=== PATIENT | male | born 1985 | race Caucasian/White ===

== ENCOUNTER → 2020-06-29 09:32 | Outpatient (BNVA) | payer OTHER, SELFPAY | PROVIDERS: Referring Provider Nurse Practitioner Family; Visit Provider Physician Assistant | DX: E66.9 Obesity, unspecified (principal); Z68.33 Body mass index [BMI] 33.0-33.9, adult; K90.49 Malabsorption due to intolerance, not elsewhere classified; Z98.84 Bariatric surgery status | CPT/HCPCS: 99214 ==

== ENCOUNTER 2020-09-01 12:31 | Outpatient (REF) | payer OTHER, SELFPAY ==
[2020-09-01 13:22] LABS: Basophils Percent Auto 0.9 % (0-2); Eosinophils Absolute Auto 0.2 X10*3/uL (0.0-0.4); Eosinophils Percent Auto 5.9 % (0-4); Hematocrit 45.5 % (42-52); Hemoglobin 15.3 g/dl (14.0-18.0); Lymphocytes Absolute Auto 1.9 X10*3/uL (1.2-4.9); Lymphocytes Percent Auto 57.6 % (20-40); MANUAL DIFF FLAG SCAN; Mean Corpuscular HGB Conc 33.6 g/dl (31.0-36.0); Mean Corpuscular Hemoglobin 32.2 pg (27.0-33.0); Mean Corpuscular Volume 95.8 fL (80-98); Mean Platelet Volume 9.6 fL (9.4-12.4); Monocytes Absolute Auto 0.4 X10*3/uL (0.1-1.2); Monocytes Percent Auto 11.2 % (2-11); Neutrophils Absolute Auto 0.8 X10*3/uL (2.0-8.3); Neutrophils Percent Auto 24.4 % (45-73); Platelet Count 329 X10*3/uL (160-400); Red Blood Count 4.75 X10*6/uL (4.60-5.80); Red Cell Distribution Width 12.8 % (11.0-16.0); SCAN SMEAR FLAG 1; White Blood Count 3.2 X10*3/uL (4.8-10.8)
[2020-09-01 13:49] LABS: Alanine Aminotransferase 35 U/L (0-40); Albumin Level 4.6 g/dL (3.5-5.0); Alkaline Phosphatase 57 U/L (39-117); Anion Gap 12 (12-20); Aspartate Amino Transferase 64 U/L (5-37); Bilirubin Total 1.5 mg/dL (0.0-1.0); Blood Urea Nitrogen 16 mg/dL (9-16); C Reactive Protein 0.24 mg/dL (< or = 0.50); Carbon Dioxide 31 mmol/L (22-29); Chloride 101 mmol/L (96-108); Cholesterol 170 mg/dL; Estimated Glomerular Filt Rate > 60; Glucose Random 90 mg/dL (60-115); HDL Cholesterol 58 mg/dL; Iron 157 mcg/dL (45-160); LDL Cholesterol Calculated 98 mg/dl; Percent Iron Saturation 53 % (15-50); Potassium 4.6 mmol/l (3.3-5.1); Sodium 139 mmol/L (135-145); Total Iron Binding Capacity 297 mcg/dL (228-428); Total Protein 6.9 g/dL (6.5-8.0); Triglycerides 71 mg/dL; Unsaturated Iron Binding 140 ug/dL
[2020-09-01 14:10] LABS: Ferritin 257 ng/mL (20-250); TSH reflex Free T4 0.54 mIU/mL (0.32-4.0); Vitamin D 25-OH Total 19.4 ng/mL (>30)
[2020-09-01 14:17] LABS: Folate 8.3 ng/mL (> or = 4.0); Vitamin B12 378 pg/mL (200-900)
[2020-09-01 15:00] LABS: Estimated Average Glucose 105 mg/dL; Hemoglobin A1c % 5.3 %
[2020-09-01 15:18] LABS: SLIDE REVIEW VERIFIED
[2020-09-02 16:03] LABS: Calcium (PTHI) 9.5 mg/dL (8.6-10.3); PTHI 27 pg/mL (14-64)
[2020-09-02 17:12] LABS: Insulin Level Total 3.2 uIU/mL
[2020-09-04 13:32] LABS: Zinc 103 mcg/dL (60-130)
[2020-09-05 12:36] LABS: Vitamin B1 9 nmol/L (8-30)
[2020-09-06 09:42] LABS: Vitamin A 53 mcg/dL (38-98)
== END 2020-09-01 12:32 | disposition home or self-care (01) ==
LOC: HO.LAB 12:31
PROVIDERS: PCP Internal Medicine; Visit Provider Physician Assistant
DX: E66.9 Obesity, unspecified (principal)
CPT/HCPCS: 36415; 80053; 80061; 82306; 82607; 82728; 82746; 83036; 83525; 83540; 83970; 84425; 84443; 84590; 84630; 85025; 86140

== ENCOUNTER → 2020-09-06 08:17 | Outpatient (BNVA) | payer OTHER, SELFPAY | PROVIDERS: PCP Internal Medicine; Visit Provider Physician Assistant | DX: Z76.89 Persons encountering health services in other specified circumstances (principal) ==

== ENCOUNTER → 2020-09-22 08:56 | Outpatient (BNVA) | payer OTHER, SELFPAY | PROVIDERS: PCP Internal Medicine; Visit Provider Physician Assistant | DX: Z76.89 Persons encountering health services in other specified circumstances (principal) ==

== ENCOUNTER → 2020-10-07 08:03 | Outpatient (BNVA) | payer OTHER, SELFPAY | PROVIDERS: PCP Internal Medicine; Visit Provider Physician Assistant ==

== ENCOUNTER → 2020-11-09 07:59 | Outpatient (BNVA) | payer OTHER, SELFPAY | PROVIDERS: PCP Internal Medicine; Visit Provider Dietitian, Registered ==

== ENCOUNTER 2021-09-21 09:59 | Outpatient (REF) | payer OTHER, SELFPAY ==
[2021-09-21 11:57] LABS: COVID-19 Test Positive (Negative)
== END 2021-09-21 10:00 | disposition home or self-care (01) ==
LOC: HO.LAB 09:59
PROVIDERS: Visit Provider Internal Medicine
DX: Z20.822 Contact with and (suspected) exposure to COVID-19 (principal)
CPT/HCPCS: 87635; C9803

== ENCOUNTER 2023-05-01 14:24 | Emergency (ER) | payer OTHER, SELFPAY ==
[2023-05-01 14:37] VITALS: BP 147/90; PULSE 92; RESP 18; TEMP 36.8; O2SAT 96; BMI 41.2
--- NOTE | 2023-05-01 14:37 | ED_ITS ---
HPI - General Adult General Chief complaint: Syncope Stated complaint: High heart rate Related Data Home Medications ?Medication ?Instructions ?Recorded ?Confirmed diclofenac sodium 1 % topical gel 4 g topical QID 11/27/23 01/31/24 (Arthritis Pain (diclofenac)) Previous Rx's ?Medication ?Instructions ?Recorded atenolol 50 mg tablet 50 mg PO DAILY #90 tabs 02/22/24 Allergies Allergy/AdvReac Type Severity Reaction Status Date / Time No Known Allergies Allergy Verified 12/06/23 15:17 [facility] Past Medical History Medical History (Updated 03/05/24 @ 10:11 by KING Salinas) Palpitations Internal hemorrhoids Torn ACL Back pain Depression GERD (gastroesophageal reflux disease) Hypertension Seasonal allergies Malabsorption due to intolerance, not elsewhere classified Obesity (BMI 30.0-34.9) Surgical History [place] teeth extracted S/P laparoscopic sleeve gastrectomy Family History Family History Father Myocardial infarction Mother Brain tumor Diabetes CVD (cardiovascular disease) COPD (chronic obstructive pulmonary disease) Hypertension Sister No problems noted. Sister No problems noted. Daughter No problems noted. Maternal Grandmother Leukemia Social History Social History Housing: Other Alcohol intake: current Alcohol intake frequency: a few times a week Patient Tobacco Use Status: Former Tobacco user Tobacco use type: Cigarette e-Cigarette/Vaping Use: Never Used Second Hand Smoke Exposure: Yes service: No Current occupational status: employed Cognitive needs: No Hearing needs: No Vision needs: Yes Physical Exam ED Vital Signs: Vital Signs - 24 hr 05/01/23 14:37 Temperature 98.3 F Pulse Rate 92 Respiratory Rate 18 Blood Pressure 147/90 H Pulse Oximetry 96 Oxygen Delivery Method Room Air BMI result Body Mass Index 41.2 Course Course Course Narrative: This is an RME: Additional HPI, ROS, PE not included below will be deferred to primary provider. Patient is a 37 year old male who presents for sweating, feeling like his heart is racing and dizziness while working today. Felling better but slightly out of it Plan: cardiac work up Discharge Plan Discharge Clinical Impression: Eloped from emergency department Patient Disposition: Elopement Prescriptions: No Action atenolol 50 mg tablet 50 mg PO DAILY Qty: 90 0RF diclofenac sodium [Arthritis Pain (diclofenac)] 1 % gel 4 g topical QID Rx Instructions: apply to single knee, ankle, foot; for foot includes sole/toes/top of foot Interventions: ED Discharge Assessment Last Done: 05/01/23 20:15 Discharge Date/Time: 05/01/23 20:17 Print Language: [place]
--- NOTE | 2023-05-01 14:42 | ECG_ITS ---
Test Reason : DIZINESS Blood Pressure : / mmHG Vent. Rate : 089 BPM Atrial Rate : 089 BPM P-R Int : 136 ms QRS Dur : 102 ms QT Int : 358 ms P-R-T Axes : 007 -01 012 degrees QTc Int : 435 ms Normal sinus rhythm with sinus arrhythmia Minimal voltage criteria for LVH, may be normal variant ( R in aVL ) Borderline ECG When compared with ECG of 31-JUL-2019 10:37, No significant change was found Referred By: Generic ED Physician Electronically Signed By:BEKAH PRETTY
== END 2023-05-01 20:17 | disposition left against medical advice (07) ==
PROVIDERS: Emergency Provider Emergency Medicine; PCP Internal Medicine
DX: R00.2 Palpitations (principal); R42 Dizziness and giddiness; I10 Essential (primary) hypertension; E78.5 Hyperlipidemia, unspecified; E66.9 Obesity, unspecified; Z68.41 Body mass index [BMI] 40.0-44.9, adult; Z98.84 Bariatric surgery status
CPT/HCPCS: 93005; 99283

== ENCOUNTER 2023-05-04 07:09 | Outpatient (AMB) | payer OTHER, SELFPAY ==
--- NOTE | 2023-05-04 07:10 | A.OFFPC_ITS ---
Intake Visit Reasons: dizzy episode Allergies No Known Allergies Allergy (Verified 05/04/23 07:19) Tobacco use date assessed: 05/04/23 Dental Screening Dental Screen Date: 05/04/23 Did you have a dental visit in the last 12 months?: No Did you have a dental problem in the last 6 months where you did not have access to dental care?: No Was dental information given to patient?: Patient has dentist HPI HPI Comments History of Present Illness Details 37 year old male past history significant for hypertension, s/p laparoscopic sleeve gastrectomy. Patient has not been seen in years. Patient presents today for a telehealth appointment for ER follow-up. Patient reports on Sunday went to ER feeling dizzy at work like tunnel vision and heart racing, went to the nurse at his job and his b/p was 140/90's HR-100's. Patient states was advised to go to ER did get EKG which showed SR, sinus arrhythmia. Patient reports that time he was instructed to go back to wait in the waiting area, however there was a lot of sick people in the waiting room and he did not want a risk getting sick as he takes care of his dad so he ended up leaving. Patient previously on HCTZ and lisinopril in the past for hypertension. Patient reports stopped taking the medications due to COVID and missing appointments. Patient states that he bought a blood pressure cuff Yesterday, his readings are Home were B/p: 138/95 HR:71, 134/88, HR 41. Patient reported HR of 41 yesterday. Patient denies any chest pain, palpitations, shortness of breath, lightheadedness and syncope. Urgent 3 day Holter monitor ordered to further evaluate for arrhythmia. Patient reports a light headache at times. [facility] Medical History (Updated 05/04/23 @ 07:27 by HARVEY Rizzo) Back pain Depression GERD (gastroesophageal reflux disease) Hypertension Internal hemorrhoids Malabsorption due to intolerance, not elsewhere classified Obesity (BMI 30.0-34.9) Seasonal allergies Torn ACL Surgical History S/P laparoscopic sleeve gastrectomy [place] teeth extracted Family History (Updated 05/04/23 @ 07:12 by Lolita M Maitin, [employer]) Father Myocardial infarction Mother Brain tumor Diabetes Hypertension COPD (chronic obstructive pulmonary disease) CVD (cardiovascular disease) Sister No problems noted. Sister No problems noted. Daughter No problems noted. Social History Housing: Other Patient Tobacco Use Status: Former Tobacco user Tobacco use type: Cigarette e-Cigarette/Vaping Use: Never Used Second Hand Smoke Exposure: Yes Current occupational status: employed Cognitive needs: No Hearing needs: No Vision needs: Yes Questionnaire PHQ-9 Over the last 2 weeks, how often have you been bothered by any of the following problems? 1. Little interest or pleasure in doing things: not at all 2. Feeling down, depressed, or hopeless: not at all 3. Trouble falling or staying asleep, or sleeping too much: not at all 4. Feeling tired or having little energy: not at all 5. Poor appetite or overeating: not at all 6. Feeling bad about yourself - or that you are a failure or have let yourself or your family down: not at all 7. Trouble concentrating on things, such as reading the newspaper or watching television: not at all 8. Moving or speaking so slowly that other people could have noticed. Or the opposite - being so fidgety or restless that you have been moving around a lot more than usual: not at all 9. Thoughts that you would be better off or of hurting yourself in some way: not at all Total score: 0 Depression Screening Interpretation: Negative Source: Developed by Drs. Brendan Quintana, Amrita Ortiz, Michael Greene and colleagues, with an educational forrest from [employer]. Thrive Questionnaire Date Thrive assessed: 05/04/23 I am a: Patient What is your living situation today?: I have a steady place to live Within the past 12 months, did the food you bought not last and you didn't have the money to get more?: Never true Within the past 12 months, did you worry whether your food would run out before you got money to buy more?: Never true Do you have trouble paying for medicines?: No Do you have trouble getting transportation to medical appointments?: No Do you have trouble paying your heating and electricity bill?: No Do you have trouble taking care of your child, family member or friend?: No Do you have trouble with day-to-day activities such as bathing, preparing meals, shopping, managing finances, etc.?: No Are you currently unemployed and looking for a job?: No Are you interested in more education?: No Currently or been in a relationship where the following occur: no concerns reported AUDIT C Alcohol Use Questionnaire (AUDIT-C) 1. How often do you have a drink containing alcohol?: Monthly or less 2. How many drinks containing alcohol do you have on a typical day when you are drinking?: 1 or 2 3. How often do you have six or more drinks on one occasion?: Never Total Score: 1 NOE-7 AMB Questionnaire NOE-7 Date NOE - 7 assessed: 05/04/23 Feeling nervous, anxious, or on edge: 0 = Not at all Not being able to stop or control worryin = Not at all Worrying too much about different things: 0 = Not at all Trouble relaxin = Not at all Being so restless that it is hard to sit still: 0 = Not at all Becoming easily annoyed or irritable: 0 = Not at all Feeling afraid as if something awful might happen: 0 = Not at all Total NOE-7 score (0-4 normal; 5-9 mild; 10-14 moderate; 15-21 severe): 0 Source: Developed by Drs. Brendan Quintana, Amrita Ortiz, Michael Greene and colleagues, with an educational forrest from [employer]. Review of Systems Const Denies chills, Denies fatigue, Denies fever(s) and Denies poor appetite ENT Reports Normal hearing present Card Denies chest pain, Denies syncope, Denies rapid heart rate and Denies dyspnea Resp Denies cough and Denies dyspnea Neuro Reports Normal hearing present, Denies confusion and Denies syncope Psych Denies confusion Endo Denies fatigue Physical exam (Primary Care) Vital Signs: unable to complete as this is a telehealth appointment. Tobacco/Smoking Status: Tobacco use Status Tobacco use date assessed 05/04/23 05/04/23 07:13 Patient Tobacco Use Status Former Tobacco user 05/04/23 07:13 Tobacco use type Cigarette 05/04/23 07:13 e-Cigarette/Vaping Use Never Used 05/04/23 07:13 PHQ-9: PHQ-9 Score PHQ-9: Total score 0 05/04/23 07:13 Depression Screening Interpretation: Negative Thrive Assessment: Date of Thrive Assessment Date Thrive assessed 05/04/23 05/04/23 07:13 Currently or been in a relationship where the following occur: no concerns reported Const General: No confusion Orientation/consciousness: No confusion Neuro General: No confusion Cranial nerves: Yes Normal hearing present Telehealth Telehealth Location of provider rendering services: practice address Location of patient: other (Work) Patient Identification confirmed using: Name, : Yes Telehealth method: video (Android) Patient verbally consented to treatment: Yes Patient verbally consented to billing insurance company: Yes Patient informed of any privacy concerns related to visit: Yes Minutes spent on Phone/Video with Pt.: 11 Assessment and Plan Assessment & Plan (1) Hypertension: Code(s): I10 - Essential (primary) hypertension Plan: Start patient on lisinopril 5 mg daily. Follow low-salt diet and exercise. Follow-up in 2 weeks with navigation nurse for blood pressure recheck. (2) Palpitations: Code(s): R00.2 - Palpitations Plan: Urgent Holter monitor ordered to evaluate for arrhythmia. Patient advised to seek emergency medical attention if he develops any chest pain, palpitations, shortness of breath, dizziness or syncope. Patient agreeable with plan of care. Plan Follow-up in 1 month in office. Please get fasting blood work prior to appointment. Orders: Orders Comprehensive [place]. Panel Fast Today Z13.1 - Encounter for screening for diabetes mellitus Lipid Panel Today Z13.220 - Encounter for screening for lipoid disorders TSH reflex Free T4 Today Z13.29 - Encounter for screening for other suspected endocrine disorder ECG 3 day holter monitor Today R00.2 - Palpitations Complete Blood Count Auto Diff Today Z13.0 - Encounter for screening for diseases of the blood and blood-forming organs and certain disorders involving the immune mechanism Medications: New lisinopril 5 mg PO DAILY 30 tabs 3RF I10 - Essential (primary) hypertension Coding Level of Care Code Tele New Pt Level 3 (60966) Diagnoses Hypertension I10 Palpitations R00.2
== END 2023-05-04 07:32 | disposition home or self-care (01) ==
LOC: HO.HMGH 07:09
PROVIDERS: PCP Internal Medicine; Visit Provider Nurse Practitioner Family
DX: I10 Essential (primary) hypertension (principal); R00.2 Palpitations
CPT/HCPCS: 99203

== ENCOUNTER 2023-05-05 07:07 | Outpatient (REF) | payer OTHER, SELFPAY ==
[2023-05-05 07:18] LABS: MANUAL DIFF FLAG NO
[2023-05-05 07:51] LABS: Basophils Percent Auto 0.9 % (0-2); Eosinophils Absolute Auto 0.1 X10*3/uL (0.0-0.4); Eosinophils Percent Auto 4.4 % (0-4); Hematocrit 47.8 % (42.0-52.0); Hemoglobin 16.5 g/dl (14.0-18.0); Lymphocytes Absolute Auto 1.4 X10*3/uL (1.2-4.9); Lymphocytes Percent Auto 44.1 % (20-40); Mean Corpuscular HGB Conc 34.5 g/dl (31.0-36.0); Mean Corpuscular Hemoglobin 31.4 pg (27.0-33.0); Mean Platelet Volume 9.2 fL (9.4-12.4); Monocytes Absolute Auto 0.5 X10*3/uL (0.1-1.2); Monocytes Percent Auto 14.1 % (2-11); Neutrophils Absolute Auto 1.2 x10*3/uL (2.0-8.3); Neutrophils Percent Auto 36.5 % (45-73); Platelet Count 355 X10*3/uL (160-400); Red Blood Count 5.25 X10*6/uL (4.60-5.80); White Blood Count 3.2 X10*3/uL (4.8-10.8)
[2023-05-05 08:21] LABS: Alanine Aminotransferase 20 U/L (0-40); Albumin Level 4.7 g/dL (3.5-5.0); Alkaline Phosphatase 56 U/L (39-117); Anion Gap 14 (12-20); Aspartate Amino Transferase 18 U/L (5-37); Bilirubin Total 1.3 mg/dL (0.0-1.0); Blood Urea Nitrogen 13 mg/dL (9-16); Calcium 10.2 mg/dL (8.4-10.2); Carbon Dioxide 25 mmol/L (22-29); Chloride 104 mmol/L (96-108); Cholesterol 220 mg/dL; Estimated Glomerular Filt Rate > 60; Glucose Fasting 92 mg/dL (60-99); HDL Cholesterol 55 mg/dL; LDL Cholesterol Calculated 149 mg/dl; Potassium 4.9 mmol/L (3.3-5.1); Sodium 138 mmol/L (135-145); Total Protein 7.8 g/dL (6.5-8.0); Triglycerides 81 mg/dL
[2023-05-05 08:38] LABS: TSH reflex Free T4 1.08 uIU/mL (0.32-4.0)
== END 2023-05-05 07:08 | disposition home or self-care (01) ==
LOC: HO.LAB 07:07
PROVIDERS: PCP Internal Medicine; Visit Provider Nurse Practitioner Family
DX: Z13.0 Encounter for screening for diseases of the blood and blood-forming organs and certain disorders involving the immune mechanism (principal); Z13.1 Encounter for screening for diabetes mellitus; Z13.220 Encounter for screening for lipoid disorders
CPT/HCPCS: 36415; 80053; 80061; 84443; 85025

== ENCOUNTER 2023-06-04 11:32 | Outpatient (AMB) | payer OTHER, SELFPAY ==
[2023-06-04 11:33] VITALS: BP 148/68; PULSE 75; O2SAT 98; BMI 40.4
--- NOTE | 2023-06-04 11:33 | A.OFFPC_ITS ---
Vital Signs 06/04/23 11:33 Height 5 ft 5 in Weight 243 lb BMI 40.4 BP 148/68 H Blood Pressure Location Lt brachial Position Sitting Pulse 75 Pulse Source Pulse Oximeter Pulse Oximetry (%) 98 Oxygen Delivery Method Room Air Intake Visit Reasons: 1 month f/u Watch Crystal Grinder: Not Required per policy Accompanied by: Self / Same As Patient Allergies No Known Allergies Allergy (Verified 06/04/23 11:33) Tobacco use date assessed: 05/04/23 Dental Screening Dental Screen Date: 06/04/23 Did you have a dental visit in the last 12 months?: No Did you have a dental problem in the last 6 months where you did not have access to dental care?: No Was dental information given to patient?: Patient has dentist HPI HPI Comments History of Present Illness Details 37 year old male past history significan t for hypertension, s/p laparoscopic sleeve gastrectomy. Last seen via telehealth 1 month ago presents today for follow-up. Patient was previously restarted back on his lisinopril 5 mg daily due to hypertension blood pressure in office today elevated at 148/68. Patient reports b/p is running 123/97, 140/98, 113/85. Patient reports holter monitor was denies by his insurance as it was not ordered by sales account specialist. Patient requesting referral to Cardiology to further evaluate palpitations and near syncopal episode. Patient reports ongoing left heel pain posterior ankle swelling at times after working on his feet all day and then when he gets up in the morning he heel pain is so bad he limps Patient states takes Tylenol and ibuprofen at home good effect. Patient denies any acute injury. Patient requesting refill on his lisinopril for 90 day supply, RX sent [facility] Medical History Internal hemorrhoids Torn ACL Back pain Depression GERD (gastroesophageal reflux disease) Hypertension Seasonal allergies Malabsorption due to intolerance, not elsewhere classified Obesity (BMI 30.0-34.9) Surgical History [place] teeth extracted S/P laparoscopic sleeve gastrectomy Family History Father Myocardial infarction Mother Brain tumor Diabetes Hypertension COPD (chronic obstructive pulmonary disease) CVD (cardiovascular disease) Sister No problems noted. Sister No problems noted. Daughter No problems noted. Social History Housing: Other Patient Tobacco Use Status: Former Tobacco user Tobacco use type: Cigarette e-Cigarette/Vaping Use: Never Used Second Hand Smoke Exposure: Yes Current occupational status: employed Cognitive needs: No Hearing needs: No Vision needs: Yes Questionnaire PHQ-9 Over the last 2 weeks, how often have you been bothered by any of the following problems? 1. Little interest or pleasure in doing things: not at all 2. Feeling down, depressed, or hopeless: not at all 3. Trouble falling or staying asleep, or sleeping too much: not at all 4. Feeling tired or having little energy: not at all 5. Poor appetite or overeating: not at all 6. Feeling bad about yourself - or that you are a failure or have let yourself or your family down: not at all 7. Trouble concentrating on things, such as reading the newspaper or watching television: not at all 8. Moving or speaking so slowly that other people could have noticed. Or the opposite - being so fidgety or restless that you have been moving around a lot more than usual: not at all 9. Thoughts that you would be better off or of hurting yourself in some way: not at all Total score: 0 Depression Screening Interpretation: Negative Source: Developed by Drs. Brendan Quintana, Michael Beach and colleagues, with an educational forrest from [employer]. Thrive Questionnaire Date Thrive assessed: 05/04/23 AUDIT C Alcohol Use Questionnaire (AUDIT-C) 1. How often do you have a drink containing alcohol?: Monthly or less 2. How many drinks containing alcohol do you have on a typical day when you are drinking?: 1 or 2 3. How often do you have six or more drinks on one occasion?: Never Total Score: 1 NOE-7 AMB Questionnaire NOE-7 Date NOE - 7 assessed: 05/04/23 Source: Developed by Drs. Brendan Quintana, Michael Beach and colleagues, with an educational forrest from [employer]. Review of Systems Const Denies chills, Denies fatigue, Denies fever(s) and Denies poor appetite Eyes Denies no additional complaints ENT Reports Normal hearing present Card Denies chest pain, Denies syncope, Denies rapid heart rate and Denies dyspnea Resp Denies cough and Denies dyspnea GI Denies change in stool character, Denies constipation, Denies diarrhea, Denies nausea and Denies vomiting Denies dysuria, Denies urinary frequency and Denies urinary urgency Musc Details: Right heel pain Neuro Reports Normal hearing present, Denies confusion and Denies syncope Psych Denies confusion Endo Denies fatigue Physical exam (Primary Care) Vital Signs: Last Vital Signs Pulse 75 06/04/23 11:33 BP 148/68 H 06/04/23 11:33 Pulse Ox 98 06/04/23 11:33 Oxygen Delivery Method Room Air 06/04/23 11:33 BMI result Body Mass Index 40.4 Tobacco/Smoking Status: Tobacco use Status Tobacco use date assessed 05/04/23 06/04/23 11:38 Patient Tobacco Use Status Former Tobacco user 06/04/23 11:38 Tobacco use type Cigarette 06/04/23 11:38 e-Cigarette/Vaping Use Never Used 06/04/23 11:38 PHQ-9: PHQ-9 Score PHQ-9: Total score 0 06/04/23 11:48 Depression Screening Interpretation: Negative Thrive Assessment: Date of Thrive Assessment Date Thrive assessed 05/04/23 06/04/23 11:38 Const General: No confusion Orientation/consciousness: No confusion HENMT Head: Yes normocephalic and Yes atraumatic Eyes Conjunctivae: conjunctivae normal Chest Chest palpation & inspection: normal inspection of the chest Resp Effort & Inspection: normal respiratory effort Auscultation: clear to auscultation bilaterally, no crackles, no rhonchi and no wheezes Cardio Rate: regular rate Rhythm: regular rhythm Heart sounds: S1 normal heart sound present and S2 normal heart sound present GI Inspection: Yes normal to inspection Neuro General: No confusion Cranial nerves: Yes Normal hearing present Extrem General: No edema Assessment and Plan Assessment & Plan (1) Palpitations: Code(s): R00.2 - Palpitations Plan: Patient requesting to see sales account specialist given holter monitor was denied. Referral entered (2) Hyperlipidemia: Code(s): E78.5 - Hyperlipidemia, unspecified Plan: Avoid fried foods, chicken skin, eggs, butter,margarine, pastries and?? red meat. LDL goal < 130 (3) Hypertension: Code(s): I10 - Essential (primary) hypertension Plan: Continue on lisinopril 5mg daily Follow low-salt diet. Continue to check blood pressures at home after sitting and 3-5 minutes and keep a log, patient advised to notify office if he has elevated blood pressures to make necessary adjustments in his blood pressure medication. (4) Obesity (BMI 30.0-34.9): Code(s): E66.9 - Obesity, unspecified Plan: Diet and excercise to reduce BMI (5) Pain of left heel: Code(s): M79.672 - Pain in left foot Plan: left foot and ankle ankle ordered to rule out acute injury. Can continue to take OTC tylenol or ibuprofen as needed for pain and ensure to wear supportive sneakers. (6) Left ankle pain: Code(s): M25.572 - Pain in left ankle and joints of left foot Orders: Orders XR ankle LT 2V Today M25.572 - Pain in left ankle and joints of left foot, M79.672 - Pain in left foot XR foot LT 2V Today M25.572 - Pain in left ankle and joints of left foot, M79.672 - Pain in left foot Referrals Cardiology Referral R00.2 - Palpitations Medications: Refilled lisinopril 5 mg PO DAILY 90 tabs 3RF I10 - Essential (primary) hypertension Coding Level of Care Code Est Pt Level 4 (74117) Diagnoses Palpitations R00.2 Hyperlipidemia E78.5 Hypertension I10 Obesity (BMI 30.0-34.9) E66.9 Pain of left heel M79.672 Left ankle pain M25.572
== END 2023-06-04 12:05 | disposition home or self-care (01) ==
PROVIDERS: PCP Internal Medicine; Visit Provider Nurse Practitioner Family
DX: R00.2 Palpitations (principal); I10 Essential (primary) hypertension; M79.672 Pain in left foot; M25.572 Pain in left ankle and joints of left foot
CPT/HCPCS: 99214

== ENCOUNTER 2023-06-04 12:24 | Outpatient (REF) | payer OTHER, SELFPAY ==
--- NOTE | ~2023-06-04 | XR_ITS ---
EXAMINATION: XR LEFT ANKLE, LEFT FOOT CLINICAL INFORMATION: Pain in left ankle and joints of foot COMPARISON: None TECHNIQUE: 2 views of the left ankle. 3 views of the left foot. FINDINGS: Left ankle: Diffuse soft tissue swelling at the ankle. Small dorsal calcaneal spur. Ankle mortise is preserved. Left foot: Moderate degenerative changes first metatarsophalangeal joint with joint space narrowing and hypertrophic change. Metatarsus adductus, hallux valgus XR/XR foot LT 2V IMPRESSION: 1. Diffuse soft tissue swelling at the ankle. 2. Small dorsal calcaneal spur. 3. Moderate degenerative changes first metatarsophalangeal joint. 4. No displaced fracture of the left foot and ankle. Recommend follow-up imaging in 10-14 days if fracture is suspected. Additional imaging with CT scan or MRI should be considered for better visualization as these modalities are much more sensitive for detection of fracture or other underlying pathology.
--- NOTE | ~2023-06-04 | XR_ITS ---
EXAMINATION: XR LEFT ANKLE, LEFT FOOT CLINICAL INFORMATION: Pain in left ankle and joints of foot COMPARISON: None TECHNIQUE: 2 views of the left ankle. 3 views of the left foot. FINDINGS: Left ankle: Diffuse soft tissue swelling at the ankle. Small dorsal calcaneal spur. Ankle mortise is preserved. Left foot: Moderate degenerative changes first metatarsophalangeal joint with joint space narrowing and hypertrophic change. Metatarsus adductus, hallux valgus XR/XR ankle LT 2V IMPRESSION: 1. Diffuse soft tissue swelling at the ankle. 2. Small dorsal calcaneal spur. 3. Moderate degenerative changes first metatarsophalangeal joint. 4. No displaced fracture of the left foot and ankle. Recommend follow-up imaging in 10-14 days if fracture is suspected. Additional imaging with CT scan or MRI should be considered for better visualization as these modalities are much more sensitive for detection of fracture or other underlying pathology.
== END 2023-06-04 12:25 | disposition home or self-care (01) ==
LOC: HO.XRAY 12:24
PROVIDERS: PCP Internal Medicine; Visit Provider Nurse Practitioner Family
DX: M25.572 Pain in left ankle and joints of left foot (principal); M79.672 Pain in left foot
CPT/HCPCS: 73600; 73620

== ENCOUNTER → 2023-06-08 11:17 | Outpatient (BNV) | payer OTHER, SELFPAY | PROVIDERS: PCP Internal Medicine; Visit Provider Internal Medicine Medical Oncology | DX: D72.819 Decreased white blood cell count, unspecified (principal) | CPT/HCPCS: 99204; 99213 ==

== ENCOUNTER 2023-08-25 08:28 | Outpatient (REF) | payer OTHER, SELFPAY ==
[2023-08-25 08:46] LABS: MANUAL DIFF FLAG NO
[2023-08-25 09:38] LABS: Eosinophils Absolute Auto 0.1 X10*3/uL (0.0-0.4); Eosinophils Percent Auto 3.8 % (0-4); Hematocrit 46.5 % (42.0-52.0); Hemoglobin 15.8 g/dl (14.0-18.0); Lymphocytes Absolute Auto 1.1 X10*3/uL (1.2-4.9); Lymphocytes Percent Auto 35.1 % (20-40); Mean Corpuscular Hemoglobin 31.3 pg (27.0-33.0); Mean Corpuscular Volume 92.1 fL (80.0-98.0); Monocytes Absolute Auto 0.4 X10*3/uL (0.1-1.2); Monocytes Percent Auto 12.1 % (2-11); Neutrophils Absolute Auto 1.5 x10*3/uL (2.0-8.3); Platelet Count 364 X10*3/uL (160-400); Red Blood Count 5.05 X10*6/uL (4.60-5.80); Red Cell Distribution Width 12.5 % (11.0-16.0); White Blood Count 3.1 X10*3/uL (4.8-10.8)
[2023-08-25 09:55] LABS: Alanine Aminotransferase 19 U/L (0-40); Albumin Level 4.6 g/dL (3.5-5.0); Alkaline Phosphatase 58 U/L (39-117); Anion Gap 12 (12-20); Aspartate Amino Transferase 18 U/L (5-37); Bilirubin Total 1.4 mg/dL (0.0-1.0); Blood Urea Nitrogen 19 mg/dL (9-16); Calcium 9.8 mg/dL (8.4-10.2); Carbon Dioxide 28 mmol/L (22-29); Chloride 104 mmol/L (96-108); Cholesterol 220 mg/dL (<200); Estimated Glomerular Filt Rate > 60; Glucose Fasting 88 mg/dL (60-99); Glucose Random 87 mg/dL (60-115); HDL Cholesterol 59 mg/dL (>40); LDL Cholesterol Calculated 139 mg/dL (<100); Potassium 4.4 mmol/L (3.3-5.1); Sodium 140 mmol/L (135-145); Total Protein 7.7 g/dL (6.5-8.0); Triglycerides 110 mg/dL (<150)
== END 2023-08-25 08:29 | disposition home or self-care (01) ==
LOC: HO.LAB 08:28
PROVIDERS: PCP Internal Medicine; Visit Provider Nurse Practitioner Family
DX: D72.819 Decreased white blood cell count, unspecified (principal); E78.5 Hyperlipidemia, unspecified; I10 Essential (primary) hypertension
CPT/HCPCS: 36415; 80053; 80061; 85025

== ENCOUNTER 2023-09-18 10:45 | Outpatient (AMB) | payer OTHER, SELFPAY ==
--- NOTE | 2023-09-18 10:54 | MHC.OFFVIS ---
Intake Vital Signs 09/18/23 10:58 Height 5 ft 5 in Weight 253 lb 8.505 oz BMI 42.2 BP 132/90 H Blood Pressure Location Lt brachial Position Sitting Pulse 82 Intake Visit Reasons: NPV/Palpitations/Po/Confirmed Intake Note: NPV It Program Engagement Director Required: No Accompanied by: Self / Same As Patient Allergies No Known Allergies Allergy (Verified 09/18/23 10:59) Medication List - Last Reconciled 09/18/23 by Bertrand Argueta MD lisinopril 5 mg PO DAILY HPI HPI Comments History of Present Illness Details This is a cardiology consultation regarding palpitations. Patient is morbidly obese. He states that for the last few months, he has been noticing palpitations. More so when he is actively doing something. He feels that heart is pounding. On occasion, he can also feel some tightness in the chest. Not clear if he is describing same problem. When going up stairs, he can also feel short of breath. No known cardiac issues like coronary disease or cardiomyopathy. [facility] Medical History Internal hemorrhoids Torn ACL Back pain Depression GERD (gastroesophageal reflux disease) Hypertension Seasonal allergies Malabsorption due to intolerance, not elsewhere classified Obesity (BMI 30.0-34.9) Surgical History [place] teeth extracted S/P laparoscopic sleeve gastrectomy Family History Father Myocardial infarction Mother Brain tumor Diabetes CVD (cardiovascular disease) COPD (chronic obstructive pulmonary disease) Hypertension Sister No problems noted. Sister No problems noted. Daughter No problems noted. Maternal Grandmother Leukemia Social History (Updated 09/18/23 @ 11:01 by Siomara Salinas) Housing: Other Alcohol intake: current Alcohol intake frequency: a few times a week Patient Tobacco Use Status: Former Tobacco user Tobacco use type: Cigarette e-Cigarette/Vaping Use: Never Used Second Hand Smoke Exposure: Yes service: No Current occupational status: employed Cognitive needs: No Hearing needs: No Vision needs: Yes Review of Systems Const Denies fatigue and Denies weakness Eyes Denies loss of vision ENT Denies dizziness and Denies hearing loss Card Denies chest pain, Denies chest pain with activity, Denies syncope, Denies rapid heart rate, Denies pedal edema, Denies edema, Denies leg edema, Reports lightheadedness, Denies palpitations, Reports dyspnea on exertion and Denies orthopnea Resp Denies cough, Reports dyspnea on exertion and Denies wheezing GI Denies hematochezia and Denies change in stool character Denies hematuria, Denies dysuria and Denies urinary frequency Musc Denies abnormal gait, Denies muscle cramps, Denies muscle weakness, Denies numbness, Denies radiating pain into limb and Denies tingling Skin/Breast Denies nail changes and Denies rash Neuro Denies Abnormal speech present, Denies abnormal gait, Denies dizziness, Denies syncope, Denies loss of vision, Denies memory loss, Denies numbness, Denies tingling and Denies weakness Psych Denies depression and Denies memory loss Endo Denies fatigue and Denies palpitations Aller/Immun Denies wheezing Physical Exam Vital Signs: Last Vital Signs Pulse 82 09/18/23 10:58 BP 132/90 H 09/18/23 10:58 BMI result Body Mass Index 42.2 Const General: comfortable and no acute distress Orientation/consciousness: patient oriented x3 HEENT Other: Unremarkable Head: Yes normal to inspection Neck Neck: Yes normal visual inspection Chest Chest palpation & inspection: normal inspection of the chest Resp Auscultation: clear to auscultation bilaterally Cardio Palpation: normal PMI Heart sounds: S1 normal heart sound present, S2 normal heart sound present, no gallops, no murmurs and no rubs GI Palpation (GI): Soft to palpation Back/Spine/Pelvis Other: unremarkable Skin General skin exam: no rashes or lesions noted Neuro General: patient oriented x3 Speech: No Abnormal speech present Extrem General: Yes normal to inspection Psych Mental Status: mental status grossly normal Assessment & Plan Assessment & Plan (1) Palpitations: Code(s): R00.2 - Palpitations (2) Chest tightness: Code(s): R07.89 - Other chest pain (3) Shortness of breath: Code(s): R06.02 - Shortness of breath Plan EKG with sinus rhythm at 89/Min; voltage criteria for LVH; normal KS and corrected QT. Constellation of symptoms including palpitations, chest tightness and shortness of breath with activity. He will need comprehensive workup and hence may proceed with an echocardiogram, stress test as well as Holter. Once these are completed and reviewed, we can arrange follow-up. In the interim, avoid any form of strenuous exertion. Discussed. Orders: Orders CA echo stress exercise Today R00.2 - Palpitations, R07.2 - Precordial pain ECG 14 day holter monitor Today R00.2 - Palpitations CA echo transthoracic complete Today R00.2 - Palpitations Coding Level of Care Code New Pt Level 4 (15542) Diagnoses Palpitations R00.2 Chest tightness R07.89 Shortness of breath R06.02
[2023-09-18 10:58] VITALS: BP 132/90; PULSE 82; BMI 42.2
== END 2023-09-18 11:17 | disposition home or self-care (01) ==
PROVIDERS: PCP Internal Medicine; Visit Provider Internal Medicine
DX: R00.2 Palpitations (principal); R07.89 Other chest pain; R06.02 Shortness of breath
CPT/HCPCS: 99204

== ENCOUNTER → 2023-09-18 10:45 | Outpatient (BNVA) | payer OTHER, SELFPAY | PROVIDERS: PCP Internal Medicine; Visit Provider Internal Medicine | DX: R00.2 Palpitations (principal); R07.89 Other chest pain; R06.02 Shortness of breath | CPT/HCPCS: 99202 ==

== ENCOUNTER 2023-09-20 10:58 | Outpatient (AMB) | payer OTHER, SELFPAY ==
[2023-09-20 11:16] VITALS: BP 140/92; PULSE 82; O2SAT 98; BMI 41.6
--- NOTE | 2023-09-20 11:16 | MHC.PC.OV ---
Vital Signs 09/20/23 11:16 Height 5 ft 5 in Weight 250 lb 0.2 oz BMI 41.6 BP 140/92 H Blood Pressure Location Lt brachial Position Sitting Pulse 82 Pulse Source Pulse Oximeter Pulse Oximetry (%) 98 Oxygen Delivery Method Room Air Intake Visit Reasons: follow up Hand Shoe Cutter Required: No Allergies No Known Allergies Allergy (Verified 09/20/23 11:16) Medication List - Last Reconciled 09/20/23 by Tello Jackson MD lisinopril 5 mg PO DAILY Tobacco use date assessed: 09/20/23 Dental Screening Dental Screen Date: 09/20/23 Did you have a dental visit in the last 12 months?: No Did you have a dental problem in the last 6 months where you did not have access to dental care?: No HPI follow up HPI Details 37-year-old obese morbid male with hypertension hypercholesterolemia palpitations coming in for follow-up last seen May 2023 patient was referred to Cardiology EKG with sinus rhythm stress test requested EKG requested and echocardiogram.. Blood work noted to have leukopenia and was referred to Hematology Oncology patient has history of laparoscopic sleeve gastrectomy. Workup presently being done if less than 2 will do bone marrow. Patient has also complained about heel pain on the left x-ray doneDiffuse soft tissue swelling at the ankle. 2. Small dorsal calcaneal spur. 3. Moderate degenerative changes first metatarsophalangeal joint. 4. No displaced fracture of the left foot and ankle. Recommend follow-up imaging in 10-14 days if fracture is suspected. Additional imaging with CT scan or MRI should be considered for better visualization as these modalities are much more sensitive for detection of fracture or other underlying pathology. BP at home is 142.116 [facility] Medical History (Updated 09/20/23 @ 12:14 by Tello Jackson MD) Palpitations Internal hemorrhoids Torn ACL Back pain Depression GERD (gastroesophageal reflux disease) Hypertension Seasonal allergies Malabsorption due to intolerance, not elsewhere classified Obesity (BMI 30.0-34.9) Surgical History (Updated 09/20/23 @ 12:19 by Tello Jackson MD) [place] teeth extracted S/P laparoscopic sleeve gastrectomy Family History Father Myocardial infarction Mother Brain tumor Diabetes CVD (cardiovascular disease) COPD (chronic obstructive pulmonary disease) Hypertension Sister No problems noted. Sister No problems noted. Daughter No problems noted. Maternal Grandmother Leukemia Social History (Updated 09/18/23 @ 11:01 by Siomara Salinas) Housing: Other Alcohol intake: current Alcohol intake frequency: a few times a week Patient Tobacco Use Status: Former Tobacco user Tobacco use type: Cigarette e-Cigarette/Vaping Use: Never Used Second Hand Smoke Exposure: Yes service: No Current occupational status: employed Cognitive needs: No Hearing needs: No Vision needs: Yes Questionnaire PHQ-9 Over the last 2 weeks, how often have you been bothered by any of the following problems? 1. Little interest or pleasure in doing things: not at all 2. Feeling down, depressed, or hopeless: not at all 3. Trouble falling or staying asleep, or sleeping too much: not at all 4. Feeling tired or having little energy: not at all 5. Poor appetite or overeating: not at all 6. Feeling bad about yourself - or that you are a failure or have let yourself or your family down: not at all 7. Trouble concentrating on things, such as reading the newspaper or watching television: not at all 8. Moving or speaking so slowly that other people could have noticed. Or the opposite - being so fidgety or restless that you have been moving around a lot more than usual: not at all 9. Thoughts that you would be better off or of hurting yourself in some way: not at all Total score: 0 Depression Screening Interpretation: Negative Depression Screening Done: Yes Source: Developed by Drs. Brendan Quintana, Amrita Ortiz, Michael Greene and colleagues, with an educational forrest from [employer]. Thrive Questionnaire Date Thrive assessed: 05/04/23 AUDIT C Alcohol Use Questionnaire (AUDIT-C) 1. How often do you have a drink containing alcohol?: Monthly or less 2. How many drinks containing alcohol do you have on a typical day when you are drinking?: 1 or 2 3. How often do you have six or more drinks on one occasion?: Never Total Score: 1 NOE-7 AMB Questionnaire NOE-7 Date NOE - 7 assessed: 09/20/23 Feeling nervous, anxious, or on edge: 0 = Not at all Not being able to stop or control worryin = Not at all Worrying too much about different things: 0 = Not at all Trouble relaxin = Not at all Being so restless that it is hard to sit still: 0 = Not at all Becoming easily annoyed or irritable: 0 = Not at all Feeling afraid as if something awful might happen: 0 = Not at all Total NOE-7 score (0-4 normal; 5-9 mild; 10-14 moderate; 15-21 severe): 0 Source: Developed by Drs. Brendan Quintana, Amrita Ortiz, Michael Greene and colleagues, with an educational forrest from [employer]. Physical exam (Primary Care) Vital Signs: Last Vital Signs Pulse 82 09/20/23 11:16 BP 140/92 H 09/20/23 11:16 Pulse Ox 98 09/20/23 11:16 Oxygen Delivery Method Room Air 09/20/23 11:16 BMI result Body Mass Index 41.6 Tobacco/Smoking Status: Tobacco use Status Tobacco use date assessed 09/20/23 09/20/23 11:17 Patient Tobacco Use Status Former Tobacco user 09/20/23 11:17 Tobacco use type Cigarette 09/20/23 11:17 e-Cigarette/Vaping Use Never Used 09/20/23 11:17 PHQ-9: PHQ-9 Score PHQ-9: Total score 0 09/20/23 11:37 Depression Screening Interpretation: Negative Thrive Assessment: Date of Thrive Assessment Date Thrive assessed 05/04/23 09/20/23 11:17 Const General: alert; No acute distress Eyes Conjunctivae: conjunctivae normal Resp Auscultation: clear to auscultation bilaterally Cardio Rate: regular rate Rhythm: regular rhythm GI Inspection: Yes normal to inspection Extrem General: Yes normal to inspection and No edema Assessment and Plan Assessment & Plan (1) Arthritis of left ankle: Code(s): M19.072 - Primary osteoarthritis, left ankle and foot Plan: Keep active lose the weight- will be seeing Podiatry Corey Edwards (2) Obesity (BMI 30.0-34.9): Code(s): E66.9 - Obesity, unspecified Plan: Diet and exercise (3) S/P laparoscopic sleeve gastrectomy: Comment: DR. Shaw 2018 Code(s): Z98.84 - Bariatric surgery status Plan: Follow-up with bariatric surgeon (4) Hypertension: Code(s): I10 - Essential (primary) hypertension Plan: Continue with blood pressure medication. Decrease salt intake and exercise on lisinopril 5 mg once a day (5) Hyperlipidemia: Code(s): E78.5 - Hyperlipidemia, unspecified Plan: Avoid fried foods, chicken skin, eggs, butter margarine, pastries and meat. Be it pork or beef they have a lot of cholesterol LDL goal of less than 130 and triglyceride of less than 150 (6) Palpitations: Code(s): R00.2 - Palpitations Plan: Review of the notes has seen Cardiology and echocardiogram stress test requested Medications: Changed From lisinopril 5 mg PO DAILY 90 tabs 3RF I10 - Essential (primary) hypertension To lisinopril 10 mg PO DAILY 30 tabs 3RF 30 days I10 - Essential (primary) hypertension Coding Level of Care Code Est Pt Level 4 (33815) Diagnoses Arthritis of left ankle M19.072 Obesity (BMI 30.0-34.9) E66.9 S/P laparoscopic sleeve gastrectomy Z98.84 Hypertension I10 Hyperlipidemia E78.5 Palpitations R00.2
== END 2023-09-20 12:31 | disposition home or self-care (01) ==
PROVIDERS: PCP Internal Medicine; Visit Provider Internal Medicine
DX: M19.072 Primary osteoarthritis, left ankle and foot (principal); E66.9 Obesity, unspecified; Z68.41 Body mass index [BMI] 40.0-44.9, adult; Z98.84 Bariatric surgery status; I10 Essential (primary) hypertension; E78.5 Hyperlipidemia, unspecified; R00.2 Palpitations
CPT/HCPCS: 99214

== ENCOUNTER → 2023-10-02 14:50 | Outpatient (REF) | payer OTHER, SELFPAY ==
--- NOTE | 2023-10-02 14:55 | CA_ITS ---
Transthoracic Echocardiogram Patient (Last, First, Middle): Chandan Astudillo, Gender: Male Date of : 1985 Age: 37 Procedure Date: 10/02/2023 Procedure Type: Transthoracic Echocardiogram Location: OP Height: 162.56 cm Weight: 113.4 kg BSA: 2.15 m2 Heart Rate: bpm BP: 120 / 80 mmHg [employer] [place]: RAÚL Referring MD: Bertrand Argueta MD Symptoms: R00.2 - Palpitations Study Quality: Adequate with contrast ECG Rhythm: Sinus Conclusions: - The left ventricular systolic function is mildly decreased. The calculated ejection fraction is 50% by biplane method. - No obvious valvular pathology seen on this study. - Small plaque is seen in the sino tubular ridge. Findings Left Ventricle Normal left ventricular cavity size. There is mildly increased left ventricular wall thickness. The left ventricular systolic function is mildly decreased. The calculated ejection fraction is 50% by biplane method. There is no evidence of regional wall motion abnormalities. There is mild global hypokinesis. Diastolic function is normal for age. Right Ventricle Normal right ventricular cavity size and systolic function. Atria Both atria are normal in size. Aortic Valve There is a normal trileaflet aortic valve. There is mild calcification of the aortic valve. There is no aortic valve stenosis. There is trace (trivial) aortic valve regurgitation. Mitral Valve The mitral valve appears normal. There is no mitral valve regurgitation. There is no mitral valve stenosis. Pulmonic Valve The pulmonic valve is likely normal. Tricuspid Valve There is trace tricuspid valve regurgitation. There is no evidence of pulmonary hypertension. Great Vessels The asc aorta is normal in size. Small plaque is seen in the sino tubular ridge. Venous The inferior vena cava is normal in size and collapses greater than 50% with inspiration. Pericardium/Pleural There is no evidence of pericardial effusion. Prior Study Comparison Changes noted compared to prior study dated: 08/05/2019. Improved LVEF. Recommendations, Care & Conclusions No obvious valvular pathology seen on this study. Measurements 2D Linear Measurements IVSd: 1.21 0.6-0.9/0.6-1.0 cm LVIDd: 4.66 3.9-5.3/4.2-5.9 cm LVIDd Index: 2.17 2.4-3.2/2.2-3.1 cm/m2 LVIDs: 3.62 2.0-3.6 cm LVPWd: 1.19 0.7-1.1 cm LA Diam: 3.60 2.7-3.8/3.0-4.0 cm LAIDs Index: 1.67 1.5-2.3 cm/m2 LV Mass: 260.73 67-162/88-224 g LV Mass Index: 121.27 43-95/49-115 g/m2 LVOT Diam: 2.40 3.0+(-)1.3 cm 2D Systolic Function EF 4C: 47.60 >55% EF 2C: 51.70 >55% EF BiP: 50.40 >55% Mitral Valve MV Pk E: 0.45 MV PK A: 0.49 MV Decel Time: 288.00 E/A: 0.90 E'Lateral: 8.38 E'Medial: 6.42 E/E' Med: 7.00 E/E' Lat: 5.40 PHT: 84.00 MVA PHT: 2.62 Decel [place]: 1.56 Aortic Valve AoV Pk Che[place]: 1.49 AoV Mn Che[place]: 1.06 AoV VTI: 0.28 AoV Pk Grad: 9.00 Aov Mn Grad: 5.00 SISSY Cont.VTI: 2.43 LVOT LVOT Pk [place]: 0.74 LVOT Mn [place]: 0.52 LVOT VTI: 0.15 LVOT Pk Grad: 2.00 LVOT Mn Grad: 1.00 LVOT Diam: 2.40 LVOT Area: 4.52 Diastolic Function MV Pk E: 0.45 MV Pk A: 0.49 E/A: 0.90 E'Medial: 6.42 E/E' Med: 7.00 E' Laterial: 8.38 E/E' Lat: 5.40 Right Ventricle TAPSE (mm): 23.40 TVS' Che[place]: 14.00 Tricuspid Valve RA Press: 3.00 Great Vessels Aorta Sinus of Valsalva: 3.61 2.0-3.[address] [place]: 2.66 1.7-3.4 cm Ao Asc: 3.70 2.1-3.4 cm Updated in Other Vendor System with Status of Final Bertrand Argueta MD electronically signed on 10/04/2023 9:00:13 AM with status of Final
== END ==
LOC: HO.CARD 14:50
PROVIDERS: PCP Internal Medicine; Visit Provider Internal Medicine
DX: R00.2 Palpitations (principal)
CPT/HCPCS: 93306; Q9957

== ENCOUNTER → 2023-10-02 14:55 | Outpatient (BNV) | payer OTHER, SELFPAY | PROVIDERS: PCP Internal Medicine; Visit Provider Internal Medicine | DX: I35.8 Other nonrheumatic aortic valve disorders (principal) | CPT/HCPCS: 93306 ==

== ENCOUNTER → 2023-10-08 10:37 | Outpatient (REF) | payer OTHER, SELFPAY ==
--- NOTE | 2023-10-08 10:45 | HM_ITS ---
* Total monitoring time 2 weeks. * Frequent PVCs with a burden of 3%. Evidence of couplets, triplets, bigeminy and trigeminy. Several short runs noted. Longest 7 beats. Monomorphic. * Frequent supraventricular ectopy with a burden of 6.5%. * Several runs noted. Longest episode about 1 hour. Some rapid episodes noted as much as over 200/Min; could be atrial flutter versus AVNRT. * No significant pauses or AV blocks. * No patient markers or diary events. MTDD
--- NOTE | 2023-10-08 10:45 | CA_ITS ---
Acquisition Time: 2023-10-08 10:47:13 Total Exercise Time: 00:09:21 Test Indications: Palpitations Medications: See H Protocol: MILLIE Max HR: 171 BPM 94% of Pred: 181 BPM Max BP: 162/090 mmHG Max Work Load: 10.9 METS Exercuse stress test with exercise 9 min 21 sec of Millie protocol, achieving > 90% MPHR, with mild sob, no chest discomfort, with frequent PACs and PVCs, atrial cuplets and 3-4 beat runs, with normotensive response to exercise, without EKG changes meeting criteria for ischemia. Echo images obtained by tech at rest and immediately post peak exercise, Definity contrast used. Test reviewed with Dr Byrne. Referred By: Bertrand Argueta Overread By: MAXIME RODRÍGUEZ
== END ==
LOC: HO.CARD 10:37
PROVIDERS: PCP Internal Medicine; Visit Provider Internal Medicine
DX: R07.2 Precordial pain (principal); R00.2 Palpitations
CPT/HCPCS: 93246; 93350; Q9957

== ENCOUNTER → 2023-10-08 10:45 | Outpatient (BNV) | payer OTHER, SELFPAY | PROVIDERS: PCP Internal Medicine; Visit Provider Nurse Practitioner Family | DX: I47.10 Supraventricular tachycardia, unspecified (principal) | CPT/HCPCS: 93016; 93018; 93248; 93350; 93352 ==

== ENCOUNTER 2023-10-30 13:58 | Outpatient (AMB) | payer OTHER, SELFPAY ==
--- NOTE | 2023-10-30 14:00 | MHC.OFFVIS ---
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 Recently seen in consultation regarding palpitations. He is morbid obesity. He has been having palpitations for the last few months, more so when he is actively doing something. Some random chest tightness episodes. Exertional shortness of breath. No known coronary disease or myocardial infarction. He does have obstructive sleep apnea but does not use CPAP mask. He underwent workup including echocardiogram, stress test and Holter. Holter had shown atrial arrhythmias with rapid rate and he was put on beta-blockers. After that, he states he is much better. No further palpitations. [facility] Medical History (Updated 10/30/23 @ 14:37 by Bertrand Argueta MD) Palpitations Internal hemorrhoids Torn ACL Back pain Depression GERD (gastroesophageal reflux disease) Hypertension Seasonal allergies Malabsorption due to intolerance, not elsewhere classified Obesity (BMI 30.0-34.9) Surgical History [place] teeth extracted S/P laparoscopic sleeve gastrectomy Family History Father Myocardial infarction Mother Brain tumor Diabetes CVD (cardiovascular disease) COPD (chronic obstructive pulmonary disease) Hypertension Sister No problems noted. Sister No problems noted. Daughter No problems noted. Maternal Grandmother Leukemia Social History Housing: Other Alcohol intake: current Alcohol intake frequency: a few times a week Patient Tobacco Use Status: Former Tobacco user Tobacco use type: Cigarette e-Cigarette/Vaping Use: Never Used Second Hand Smoke Exposure: Yes service: No Current occupational status: employed Cognitive needs: No Hearing needs: No Vision needs: Yes Review of Systems Const Denies weakness ENT Denies dizziness Card Denies chest pain, Denies chest pain with activity, Denies syncope, Denies rapid heart rate, Denies pedal edema, Denies edema, Denies leg edema, Denies lightheadedness, Denies palpitations, Denies dyspnea, Denies dyspnea on exertion and Denies orthopnea Resp Denies cough, Denies dyspnea and Denies dyspnea on exertion GI Denies hematochezia and Denies change in stool character Musc Denies abnormal gait, Denies muscle cramps, Denies muscle weakness, Denies numbness, Denies radiating pain into limb and Denies tingling Neuro Denies abnormal gait, Denies dizziness, Denies syncope, Denies numbness, Denies tingling and Denies weakness Endo Denies palpitations Physical Exam Vital Signs: Last Vital Signs Pulse 73 10/30/23 14:01 BP 118/76 10/30/23 14:01 BMI result Body Mass Index 44.0 Const General: comfortable and no acute distress Orientation/consciousness: patient oriented x3 HEENT Other: Unremarkable Head: Yes normal to inspection Neck Neck: Yes normal visual inspection Chest Chest palpation & inspection: normal inspection of the chest Resp Auscultation: clear to auscultation bilaterally Cardio Palpation: normal PMI Heart sounds: S1 normal heart sound present, S2 normal heart sound present, no gallops, no murmurs and no rubs GI Palpation (GI): Soft to palpation Back/Spine/Pelvis Other: unremarkable Skin General skin exam: no rashes or lesions noted Neuro General: patient oriented x3 Extrem General: Yes normal to inspection Psych Mental Status: mental status grossly normal Assessment & Plan Assessment & Plan (1) Atrial arrhythmia: Code(s): I49.8 - Other specified cardiac arrhythmias (2) Morbid obesity with BMI of 40.0-44.9, adult: Code(s): E66.01 - Morbid (severe) obesity due to excess calories; Z68.41 - Body mass index [BMI] 40.0-44.9, adult (3) TARA (obstructive sleep apnea): Code(s): G47.33 - Obstructive sleep apnea (adult) (pediatric) Plan Cardiac studies reviewed. EKG with sinus rhythm at 89/Min; voltage criteria for LVH; normal [place] and corrected QT. Echocardiogram with LVEF of 50%. No significant valvular issues. Exercise stress echocardiogram negative for ischemia at 10.9 METS workload. There was also no evidence of exercise-induced diastolic dysfunction or pulmonary hypertension. In the Holter, frequent PVCs with a burden of 3%. Some short runs. Monomorphic. There is also frequent supraventricular ectopy. Several runs up to about an hour. Some rates are almost 200/Min. Could be AVNRT or flutter. Findings discussed with patient. He seems that he is already improved on beta-blockers and hence can continue. He is somewhat sleepy but if it stays like that, possibly switch him to a different beta-gagan like atenolol. Otherwise, his weight may be the main issue but not clear how much he can lose. He also does not use CPAP mask and importance was discussed. Total time spent including review of data, counseling, documentation, coordination of care-33 minutes. Coding Level of Care Code Est Pt Level 4 (51177) Diagnoses Atrial arrhythmia I49.8 Morbid obesity with BMI of 40.0-44.9, adult E66.01; Z68.41 TARA (obstructive sleep apnea) G47.33
[2023-10-30 14:01] VITALS: BP 118/76; PULSE 73; BMI 44.0
== END 2023-10-30 14:18 | disposition home or self-care (01) ==
PROVIDERS: PCP Internal Medicine; Visit Provider Internal Medicine
DX: I49.8 Other specified cardiac arrhythmias (principal); E66.01 Morbid (severe) obesity due to excess calories; Z68.41 Body mass index [BMI] 40.0-44.9, adult; G47.33 Obstructive sleep apnea (adult) (pediatric)
CPT/HCPCS: 99214

== ENCOUNTER → 2023-10-30 13:58 | Outpatient (BNVA) | payer OTHER, SELFPAY | PROVIDERS: PCP Internal Medicine; Visit Provider Internal Medicine | DX: I49.8 Other specified cardiac arrhythmias (principal); G47.33 Obstructive sleep apnea (adult) (pediatric); E66.01 Morbid (severe) obesity due to excess calories; Z68.41 Body mass index [BMI] 40.0-44.9, adult | CPT/HCPCS: 99212 ==

== ENCOUNTER 2023-11-27 14:37 | Outpatient (AMB) | payer OTHER, SELFPAY ==
--- NOTE | 2023-11-27 14:42 | A.OFFPC_ITS ---
Vital Signs 11/27/23 14:43 Height 5 ft 5 in Weight 258 lb BMI 42.9 BP 138/80 Blood Pressure Location Lt brachial Position Sitting Pulse 83 Pulse Source Pulse Oximeter Pulse Oximetry (%) 98 Oxygen Delivery Method Room Air Intake Visit Reasons: 2 month f/u Allergies No Known Allergies Allergy (Verified 11/27/23 14:43) Tobacco use date assessed: 09/20/23 Dental Screening Dental Screen Date: 11/27/23 Did you have a dental visit in the last 12 months?: No Did you have a dental problem in the last 6 months where you did not have access to dental care?: No Was dental information given to patient?: No HPI 2 month f/u HPI Details 38-year-old obese male with a history of laparoscopic sleeve gastrectomy hypertension hypercholesterolemia palpitations coming in for follow- up. Last seen in September 2023. Review of the notes Holter done October 2023:Total monitoring time 2 weeks. Frequent PVCs with a burden of 3%. Evidence of couplets, triplets, bigeminy and trigeminy. Several short runs noted. Longest 7 beats. Monomorphic. Frequent supraventricular ectopy with a burden of 6.5%. Several runs noted. Longest episode about 1 hour. Some rapid episodes noted as much as over 200/Min; could be atrial flutter versus AVNRT. No significant pauses or AV blocks. No patient markers or diary events. Exercise ECHO September 2023 within normal limits has seen Cardiology in 10/30/2023 echocardiogram done left ventricular ejection fraction of 50% no valvular issues frequent supraventricular ectopy placed on beta blockers with improvement advised that if he is somewhat sleepy to change it to atenolol [facility] Medical History (Updated 11/27/23 @ 15:14 by Tello Jackson MD) Palpitations Internal hemorrhoids Torn ACL Back pain Depression GERD (gastroesophageal reflux disease) Hypertension Seasonal allergies Malabsorption due to intolerance, not elsewhere classified Obesity (BMI 30.0-34.9) Surgical History [place] teeth extracted S/P laparoscopic sleeve gastrectomy Family History Father Myocardial infarction Mother Brain tumor Diabetes CVD (cardiovascular disease) COPD (chronic obstructive pulmonary disease) Hypertension Sister No problems noted. Sister No problems noted. Daughter No problems noted. Maternal Grandmother Leukemia Social History Housing: Other Alcohol intake: current Alcohol intake frequency: a few times a week Patient Tobacco Use Status: Former Tobacco user Tobacco use type: Cigarette e-Cigarette/Vaping Use: Never Used Second Hand Smoke Exposure: Yes service: No Current occupational status: employed Cognitive needs: No Hearing needs: No Vision needs: Yes Questionnaire PHQ-9 Over the last 2 weeks, how often have you been bothered by any of the following problems? 1. Little interest or pleasure in doing things: not at all 2. Feeling down, depressed, or hopeless: not at all 3. Trouble falling or staying asleep, or sleeping too much: not at all 4. Feeling tired or having little energy: not at all 5. Poor appetite or overeating: not at all 6. Feeling bad about yourself - or that you are a failure or have let yourself or your family down: not at all 7. Trouble concentrating on things, such as reading the newspaper or watching television: not at all 8. Moving or speaking so slowly that other people could have noticed. Or the opposite - being so fidgety or restless that you have been moving around a lot more than usual: not at all 9. Thoughts that you would be better off or of hurting yourself in some way: not at all Total score: 0 Depression Screening Interpretation: Negative Depression Screening Done: Yes Source: Developed by Drs. Brendan Quintana, Amrita Ortiz, Michael Greene and colleagues, with an educational forrest from [employer]. Thrive Questionnaire Date Thrive assessed: 11/27/23 I am a: Patient What is your living situation today?: I have a steady place to live Within the past 12 months, did the food you bought not last and you didn't have the money to get more?: Never true Within the past 12 months, did you worry whether your food would run out before you got money to buy more?: Never true Do you have trouble paying for medicines?: No Do you have trouble getting transportation to medical appointments?: No Do you have trouble paying your heating and electricity bill?: No Do you have trouble taking care of your child, family member or friend?: No Do you have trouble with day-to-day activities such as bathing, preparing meals, shopping, managing finances, etc.?: No Are you currently unemployed and looking for a job?: No Are you interested in more education?: No Currently or been in a relationship where the following occur: no concerns reported THRIVE Score: 0 AUDIT C Alcohol Use Questionnaire (AUDIT-C) 1. How often do you have a drink containing alcohol?: Monthly or less 2. How many drinks containing alcohol do you have on a typical day when you are drinking?: 1 or 2 3. How often do you have six or more drinks on one occasion?: Never Total Score: 1 NOE-7 AMB Questionnaire NOE-7 Date NOE - 7 assessed: 09/20/23 Source: Developed by Drs. Brendan Quintana, Amrita Ortiz, Michael Greene and colleagues, with an educational forrest from [employer]. Physical exam (Primary Care) Vital Signs: Last Vital Signs Pulse 83 11/27/23 14:43 BP 138/80 11/27/23 14:43 Pulse Ox 98 11/27/23 14:43 Oxygen Delivery Method Room Air 11/27/23 14:43 BMI result Body Mass Index 42.9 Tobacco/Smoking Status: Tobacco use Status Tobacco use date assessed 09/20/23 11/27/23 14:50 Patient Tobacco Use Status Former Tobacco user 11/27/23 14:50 Tobacco use type Cigarette 11/27/23 14:50 e-Cigarette/Vaping Use Never Used 11/27/23 14:50 PHQ-9: PHQ-9 Score PHQ-9: Total score 0 11/27/23 14:50 Depression Screening Interpretation: Negative Thrive Assessment: Date of Thrive Assessment Date Thrive assessed 11/27/23 11/27/23 14:50 Currently or been in a relationship where the following occur: no concerns reported Const General: alert; No acute distress Eyes Conjunctivae: conjunctivae normal Resp Auscultation: clear to auscultation bilaterally Cardio Rate: regular rate Rhythm: regular rhythm GI Inspection: Yes normal to inspection Extrem General: Yes normal to inspection and No edema Assessment and Plan Assessment & Plan (1) Morbid obesity: Code(s): E66.01 - Morbid (severe) obesity due to excess calories Plan: Discussed about needing lose the weight. Had a long discussion with the patient regarding the need to lose the weight so that we can stay away from other medications as well as help with the sleep apnea from the SVT from the plantar fasciitis. (2) TARA (obstructive sleep apnea): Comment: Can not tolerate CPAP Code(s): G47.33 - Obstructive sleep apnea (adult) (pediatric) Plan: Discussed about treatment of sleep apnea patient states has the CPAP machine but can not tolerate. (3) Hypertension: Code(s): I10 - Essential (primary) hypertension Plan: Continue with blood pressure medication. Decrease salt intake and exercise on metoprolol tartrate 50 mg twice a day (4) S/P laparoscopic sleeve gastrectomy: Comment: DR. Shaw 2018 Code(s): Z98.84 - Bariatric surgery status Plan: Advised to continue follow-up with bariatric surgeon. (5) Hyperlipidemia: Code(s): E78.5 - Hyperlipidemia, unspecified Plan: Avoid fried foods, chicken skin, eggs, butter margarine, pastries and meat. Be it pork or beef they have a lot of cholesterol LDL goal of less than 130 and triglyceride of less than 150 (6) SVT (supraventricular tachycardia): Code(s): I47.10 - Supraventricular tachycardia, unspecified Plan: Palpitations controlled with beta-blockers. Patient has seen Cardiology. Medications: New atenolol 50 mg PO DAILY 90 tabs 0RF I47.10 - Supraventricular tachycardia, unspecified Discontinued metoprolol tartrate Discontinued Reason: Doctor's Order 50 mg PO BID 90 days 180 tabs 2RF Coding Level of Care Code Est Pt Level 4 (90866) Diagnoses Morbid obesity E66.01 TARA (obstructive sleep apnea) G47.33 Hypertension I10 S/P laparoscopic sleeve gastrectomy Z98.84 Hyperlipidemia E78.5 SVT (supraventricular tachycardia) I47.10
[2023-11-27 14:43] VITALS: BP 138/80; PULSE 83; O2SAT 98; BMI 42.9
== END 2023-11-27 15:16 | disposition home or self-care (01) ==
PROVIDERS: PCP Internal Medicine; Visit Provider Internal Medicine
DX: G47.33 Obstructive sleep apnea (adult) (pediatric) (principal); E66.01 Morbid (severe) obesity due to excess calories; Z68.41 Body mass index [BMI] 40.0-44.9, adult; I10 Essential (primary) hypertension; Z98.84 Bariatric surgery status; E78.5 Hyperlipidemia, unspecified; I47.10 Supraventricular tachycardia, unspecified
CPT/HCPCS: 99214

== ENCOUNTER 2024-01-31 14:33 | Outpatient (AMB) | payer OTHER, SELFPAY ==
[2024-01-31 14:43] VITALS: BP 124/64; PULSE 65; O2SAT 99; BMI 43.1
--- NOTE | 2024-01-31 14:43 | A.OFFVIS_ITS ---
Vital Signs 01/31/24 14:43 Height 5 ft 5 in Weight 259 lb 4.218 oz BMI 43.1 BP 124/64 Blood Pressure Location Lt brachial Position Sitting Pulse 65 Pulse Source Pulse Oximeter Pulse Oximetry (%) 99 Intake Visit Reasons: 3 mth s/p holter Desktop Support Manager Required: No Accompanied by: Self / Same As Patient Allergies No Known Allergies Allergy (Verified 12/06/23 15:17) Medication List - Last Reconciled 01/31/24 by Bertrand Argueta MD atenolol 50 mg PO DAILY diclofenac sodium 1% (Arthritis Pain (diclofenac)) 4 grams topical QID HPI Comments Details: Chandan returns for follow-up. Originally seen in consultation regarding palpitations. Has morbid obesity. No known coronary disease myocardial infarction. Has obstructive sleep apnea but not using CPAP. He underwent comprehensive workup including echocardiogram, stress test and Holter. Holter had shown atrial arrhythmias with rapid rate and he was put on beta-blockers. After that, he states he is much better. No further palpitations. [facility] Medical History Palpitations Internal hemorrhoids Torn ACL Back pain Depression GERD (gastroesophageal reflux disease) Hypertension Seasonal allergies Malabsorption due to intolerance, not elsewhere classified Obesity (BMI 30.0-34.9) Surgical History [place] teeth extracted S/P laparoscopic sleeve gastrectomy Family History Father Myocardial infarction Mother Brain tumor Diabetes CVD (cardiovascular disease) COPD (chronic obstructive pulmonary disease) Hypertension Sister No problems noted. Sister No problems noted. Daughter No problems noted. Maternal Grandmother Leukemia Social History Housing: Other Alcohol intake: current Alcohol intake frequency: a few times a week Patient Tobacco Use Status: Former Tobacco user Tobacco use type: Cigarette e-Cigarette/Vaping Use: Never Used Second Hand Smoke Exposure: Yes service: No Current occupational status: employed Cognitive needs: No Hearing needs: No Vision needs: Yes Review of Systems Const Denies chills, Denies fatigue, Denies fever(s), Denies frequent falls, Denies weakness, Denies weight gain and Denies weight loss ENT Denies dizziness Card Denies chest pain, Denies leg edema, Denies lightheadedness, Denies palpitations, Denies dyspnea and Denies dyspnea on exertion Resp Denies cough, Denies dyspnea and Denies dyspnea on exertion GI Denies hematochezia Musc Denies abnormal gait, Denies muscle weakness, Denies numbness, Denies radiating pain into limb and Denies tingling Neuro Denies abnormal gait, Denies dizziness, Denies frequent falls, Denies numbness, Denies tingling and Denies weakness Endo Denies fatigue and Denies palpitations Physical Exam Vital Signs: Last Vital Signs Pulse 65 01/31/24 14:43 BP 124/64 01/31/24 14:43 Pulse Ox 99 01/31/24 14:43 BMI result Body Mass Index 43.1 Const General: comfortable and no acute distress Orientation/consciousness: patient oriented x3 HEENT Other: Unremarkable Head: Yes normal to inspection Neck Neck: Yes normal visual inspection Chest Chest palpation & inspection: normal inspection of the chest Resp Auscultation: clear to auscultation bilaterally Cardio Palpation: normal PMI Heart sounds: S1 normal heart sound present, S2 normal heart sound present, no gallops, no murmurs and no rubs GI Palpation (GI): Soft to palpation Back/Spine/Pelvis Other: unremarkable Skin General skin exam: no rashes or lesions noted Neuro General: patient oriented x3 Extrem General: Yes normal to inspection Psych Mental Status: mental status grossly normal Assessment & Plan Assessment & Plan (1) Atrial arrhythmia: Code(s): I49.8 - Other specified cardiac arrhythmias Category: Medical (2) Morbid obesity with BMI of 40.0-44.9, adult: Code(s): E66.01 - Morbid (severe) obesity due to excess calories; Z68.41 - Body mass index [BMI] 40.0-44.9, adult Category: Medical (3) TARA (obstructive sleep apnea): Comment: Can not tolerate CPAP Code(s): G47.33 - Obstructive sleep apnea (adult) (pediatric) Category: Medical Plan Cardiac studies reviewed. EKG with sinus rhythm at 89/Min; voltage criteria for LVH; normal DE and c orrected QT. Echocardiogram with LVEF of 50%. No significant valvular issues. Exercise stress echocardiogram negative for ischemia at 10.9 METS workload. There was also no evidence of exercise-induced diastolic dysfunction or pulmonary hypertension. In the Holter, frequent PVCs with a burden of 3%. Some short runs. Monomorphic. There is also frequent supraventricular ectopy. Several runs up to about an hour. Some rates are almost 200/Min. Could be AVNRT or flutter. He seems to be doing quite well on beta-blockers and that can be continued. Weight is a major issue and if he can lose some that will be of great benefit. Compliance with CPAP if able. Follow-up in 6 months with another Holter. Total time spent including review of data, counseling, documentation, coordination of care-31 minutes. Orders: Orders ECG 3 day holter monitor 6 Months I49.8 - Other specified cardiac arrhythmias Coding Level of Care Code Est Pt Level 4 (35255) Diagnoses Atrial arrhythmia I49.8 Morbid obesity with BMI of 40.0-44.9, adult E66.01; Z68.41 TARA (obstructive sleep apnea) G47.33
== END 2024-01-31 14:49 | disposition home or self-care (01) ==
PROVIDERS: PCP Internal Medicine; Visit Provider Internal Medicine
DX: I49.8 Other specified cardiac arrhythmias (principal); E66.01 Morbid (severe) obesity due to excess calories; Z68.41 Body mass index [BMI] 40.0-44.9, adult; G47.33 Obstructive sleep apnea (adult) (pediatric)
CPT/HCPCS: 99214

== ENCOUNTER → 2024-01-31 14:33 | Outpatient (BNVA) | payer OTHER, SELFPAY | PROVIDERS: PCP Internal Medicine; Visit Provider Internal Medicine | DX: I49.8 Other specified cardiac arrhythmias (principal); G47.33 Obstructive sleep apnea (adult) (pediatric); E66.01 Morbid (severe) obesity due to excess calories; Z68.41 Body mass index [BMI] 40.0-44.9, adult | CPT/HCPCS: 99212 ==

== ENCOUNTER 2024-03-14 15:35 | Outpatient (AMB) | payer OTHER, SELFPAY ==
--- NOTE | 2024-03-14 15:37 | MHC.PC.OV ---
Vital Signs 03/14/24 15:38 Height 5 ft 5 in Weight 250 lb 0.5 oz BMI 41.6 BP 130/90 H Blood Pressure Location Lt brachial Position Sitting Pulse 58 Pulse Source Pulse Oximeter Pulse Oximetry (%) 98 Oxygen Delivery Method Room Air Intake Visit Reasons: morbid obesity, TARA, SVT Allergies No Known Allergies Allergy (Verified 03/14/24 15:38) Medication List - Last Reconciled 03/14/24 by Tello Jackson MD atenolol 50 mg PO DAILY diclofenac sodium 1% (Arthritis Pain (diclofenac)) 4 grams topical QID fluticasone propionate 50 mcg/actuation 2 sprays intranasal DAILY omeprazole 20 mg PO DAILY Tobacco use date assessed: 03/14/24 Dental Screening Dental Screen Date: 11/27/23 HPI morbid obesity, TARA, SVT HPI Details 38-year-old morbidly obese male with a history of laparoscopic sleeve gastrectomy, obstructive sleep apnea(not using CPAP) hypertension hypercholesterolemia history of SVT coming in for follow-up. Last seen in 12/05/2023. Patient follows up with Cardiology 02/04/2024 status post Holter Holter has shown atrial arrhythmias with rapid rate and has been placed on beta blockers echocardiogram EF 50% no valvular issues stress echo normal frequent SVT better on beta blockers. Patient has also seen Hematology-Oncology for leukopenia stable and continue to monitor that if going down more will need bone marrow. noted BP high [facility] Medical History (Updated 03/14/24 @ 16:10 by Tello Jackson MD) Palpitations Internal hemorrhoids Torn ACL Back pain Depression GERD (gastroesophageal reflux disease) Hypertension Seasonal allergies Malabsorption due to intolerance, not elsewhere classified Obesity (BMI 30.0-34.9) Surgical History [place] teeth extracted S/P laparoscopic sleeve gastrectomy Family History Father Myocardial infarction Mother Brain tumor Diabetes CVD (cardiovascular disease) COPD (chronic obstructive pulmonary disease) Hypertension Sister No problems noted. Sister No problems noted. Daughter No problems noted. Maternal Grandmother Leukemia Social History Housing: Other Alcohol intake: current Alcohol intake frequency: a few times a week Patient Tobacco Use Status: Former Tobacco user Tobacco use type: Cigarette e-Cigarette/Vaping Use: Never Used Second Hand Smoke Exposure: Yes service: No Current occupational status: employed Cognitive needs: No Hearing needs: No Vision needs: Yes Questionnaire Thrive Questionnaire Date Thrive assessed: 11/27/23 AUDIT C Alcohol Use Questionnaire (AUDIT-C) 1. How often do you have a drink containing alcohol?: Monthly or less 2. How many drinks containing alcohol do you have on a typical day when you are drinking?: 1 or 2 3. How often do you have six or more drinks on one occasion?: Never Total Score: 1 NOE-7 AMB Questionnaire NOE-7 Date NOE - 7 assessed: 09/20/23 Source: Developed by Drs. Brendan Quintana, Amrita Ortiz, Michael Greene and colleagues, with an educational forrest from [employer]. Physical exam (Primary Care) Vital Signs: Last Vital Signs Pulse 58 03/14/24 15:38 BP 130/90 H 03/14/24 15:38 Pulse Ox 98 03/14/24 15:38 Oxygen Delivery Method Room Air 03/14/24 15:38 BMI result Body Mass Index 41.6 Tobacco/Smoking Status: Tobacco use Status Tobacco use date assessed 03/14/24 03/14/24 15:38 Patient Tobacco Use Status Former Tobacco user 03/14/24 15:38 Tobacco use type Cigarette 03/14/24 15:38 e-Cigarette/Vaping Use Never Used 03/14/24 15:38 Thrive Assessment: Date of Thrive Assessment Date Thrive assessed 11/27/23 03/14/24 15:38 Const General: alert; No acute distress Eyes Conjunctivae: conjunctivae normal Resp Auscultation: clear to auscultation bilaterally Cardio Rate: regular rate Rhythm: regular rhythm GI Inspection: Yes normal to inspection Extrem General: Yes normal to inspection and No edema Assessment and Plan Assessment & Plan (1) Morbid obesity: Code(s): E66.01 - Morbid (severe) obesity due to excess calories Plan: Patient follows up with bariatric surgeon status post gastrectomy 2018 (2) S/P laparoscopic sleeve gastrectomy: Comment: DR. Shaw 2018 Code(s): Z98.84 - Bariatric surgery status Plan: Continue to follow-up with bariatric surgeon (3) Hypertension: Code(s): I10 - Essential (primary) hypertension Plan: Continue with blood pressure medication. Decrease salt intake and exercise on atenolol. Medication mostly for /atrial arrhythmia. concern of elevated BP - for now monitor the BP (4) Hyperlipidemia: Code(s): E78.5 - Hyperlipidemia, unspecified Plan: Avoid fried foods, chicken skin, eggs, butter margarine, pastries and meat. Be it pork or beef they have a lot of cholesterol (5) Leukopenia: Code(s): D72.819 - Decreased white blood cell count, unspecified Plan: Patient follows up with Hematology-Oncology and continue to monitor. (6) TARA (obstructive sleep apnea): Comment: Can not tolerate CPAP Code(s): G47.33 - Obstructive sleep apnea (adult) (pediatric) Plan: Discussed importance of getting sleep apnea treated. (7) Atrial arrhythmia: Code(s): I49.8 - Other specified cardiac arrhythmias Plan: Patient follows up with Cardiology workup has been negative except for the atrial arrhythmia episode. Placed on atenolol 50 mg once a day (8) GERD (gastroesophageal reflux disease): Code(s): K21.9 - Gastro-esophageal reflux disease without esophagitis Medications: New omeprazole 20 mg PO DAILY 30 caps 2RF K21.9 - Gastro-esophageal reflux disease without esophagitis Coding Level of Care Code Est Pt Level 4 (56932) Diagnoses Morbid obesity E66.01 S/P laparoscopic sleeve gastrectomy Z98.84 Hypertension I10 Hyperlipidemia E78.5 Leukopenia D72.819 TARA (obstructive sleep apnea) G47.33 Atrial arrhythmia I49.8 GERD (gastroesophageal reflux disease) K21.9
[2024-03-14 15:38] VITALS: BP 130/90; PULSE 58; O2SAT 98; BMI 41.6
== END 2024-03-14 16:20 | disposition home or self-care (01) ==
PROVIDERS: PCP Internal Medicine; Visit Provider Internal Medicine
DX: E66.01 Morbid (severe) obesity due to excess calories (principal); Z68.41 Body mass index [BMI] 40.0-44.9, adult; Z98.84 Bariatric surgery status; I10 Essential (primary) hypertension; E78.5 Hyperlipidemia, unspecified; D72.819 Decreased white blood cell count, unspecified; G47.33 Obstructive sleep apnea (adult) (pediatric); I49.8 Other specified cardiac arrhythmias; K21.9 Gastro-esophageal reflux disease without esophagitis
CPT/HCPCS: 99214

== ENCOUNTER 2024-06-25 15:10 | Outpatient (AMB) | payer OTHER, SELFPAY ==
[2024-06-25 15:11] VITALS: BP 142/90; PULSE 78; O2SAT 94; BMI 41.9
--- NOTE | 2024-06-25 15:11 | A.OFFPC_ITS ---
Vital Signs 06/25/24 15:11 06/25/24 15:28 Height 5 ft 5 in Weight 252 lb BMI 41.9 BP 142/90 H 120/82 Blood Pressure Location Lt brachial Lt brachial Position Sitting Sitting Pulse 78 Pulse Source Pulse Oximeter Pulse Oximetry (%) 94 Oxygen Delivery Method Room Air Intake Visit Reasons: obesity, TARA Allergies No Known Allergies Allergy (Verified 06/25/24 15:12) Tobacco use date assessed: 03/14/24 Dental Screening Dental Screen Date: 11/27/23 HPI obesity, TARA HPI Details 38-year-old male with past medical histo ry of obesity, history of laparoscopic sleeve gastrectomy, obstructive sleep apnea not currently on CPAP, hypertension, hypercholesterolemia, history of SVT last seen by Dr. Jackson February 2024 coming in for follow up. Review of the notes, patient was seen by Hematology for leukopenia plans to monitor white count and follow up in 6 months. Patient states he is feeling generally well and has no acute concerns today. He does not take his blood pressures at home. [facility] Medical History (Updated 03/14/24 @ 16:10 by Tello Jackson MD) Palpitations Internal hemorrhoids Torn ACL Back pain Depression GERD (gastroesophageal reflux disease) Hypertension Seasonal allergies Malabsorption due to intolerance, not elsewhere classified Obesity (BMI 30.0-34.9) Surgical History [place] teeth extracted S/P laparoscopic sleeve gastrectomy Family History Father Myocardial infarction Mother Brain tumor Diabetes CVD (cardiovascular disease) COPD (chronic obstructive pulmonary disease) Hypertension Sister No problems noted. Sister No problems noted. Daughter No problems noted. Maternal Grandmother Leukemia Social History Housing: Other Alcohol intake: current Alcohol intake frequency: a few times a week Patient Tobacco Use Status: Former Tobacco user Tobacco use type: Cigarette e-Cigarette/Vaping Use: Never Used Second Hand Smoke Exposure: Yes service: No Current occupational status: employed Cognitive needs: No Hearing needs: No Vision needs: Yes Questionnaire Thrive Questionnaire Date Thrive assessed: 11/27/23 Are you currently unemployed and looking for a job?: No AUDIT C Alcohol Use Questionnaire (AUDIT-C) 1. How often do you have a drink containing alcohol?: Monthly or less 2. How many drinks containing alcohol do you have on a typical day when you are drinking?: 1 or 2 3. How often do you have six or more drinks on one occasion?: Never Total Score: 1 NOE-7 AMB Questionnaire NOE-7 Date NOE - 7 assessed: 09/20/23 Source: Developed by Drs. Brendan Quintana, Amrita Ortiz, Michael rGeene and colleagues, with an educational forrest from [email or web address]. Review of Systems Const Denies fever(s) and Denies headache(s) Eyes Reports no additional complaints ENT Denies dizziness and Denies headache(s) Card Denies chest pain, Denies edema, Denies irregular heart rhythm, Denies lightheadedness and Denies dyspnea Resp Denies dyspnea GI Denies abdominal pain, Denies nausea and Denies vomiting Reports no additional complaints Musc Reports no additional complaints and Denies abnormal gait Skin/Breast Reports system reviewed and no additional complaints, except as documented Neuro Denies abnormal gait, Denies dizziness and Denies headache(s) Psych Reports no additional complaints Physical exam (Primary Care) Vital Signs: Last Vital Signs Pulse 78 06/25/24 15:11 BP 142/90 H 06/25/24 15:11 Pulse Ox 94 06/25/24 15:11 Oxygen Delivery Method Room Air 06/25/24 15:11 BMI result Body Mass Index 41.9 Tobacco/Smoking Status: Tobacco use Status Tobacco use date assessed 03/14/24 06/25/24 15:12 Patient Tobacco Use Status Former Tobacco user 06/25/24 15:12 Tobacco use type Cigarette 06/25/24 15:12 e-Cigarette/Vaping Use Never Used 06/25/24 15:12 Thrive Assessment: Date of Thrive Assessment Date Thrive assessed 11/27/23 06/25/24 15:12 Const General: cooperative, healthy appearing, comfortable and no acute distress Orientation/consciousness: patient oriented x3 HENMT Head: Yes normocephalic Ears: hearing grossly normal bilaterally General nose exam: Normal external nose present Eyes General: appearance normal, both eyes and all related structures Conjunctivae: conjunctivae normal Neck Neck: Yes full ROM and Yes no lymphadenopathy Resp Effort & Inspection: normal respiratory effort Auscultation: clear to auscultation bilaterally, no crackles, no rales, no rhonchi and no wheezes Cardio Rate: regular rate Rhythm: regular rhythm Skin General skin exam: no rashes or lesions noted Neuro General: patient oriented x3 Gait exam (Neuro): Normal gait present Extrem General: Yes normal to inspection, Yes full ROM and No edema Psych Affect: normal affect Attitude: cooperative Insight: Good insight present (Psych) Judgement: Good judgement present (Psych) Coding Level of Care Code Est Pt Level 3 (24279) Diagnoses GERD (gastroesophageal reflux disease) K21.9 Morbid obesity with BMI of 40.0-44.9, adult E66.01; Z68.41 TARA (obstructive sleep apnea) G47.33 Hyperlipidemia E78.5 Hypertension I10 Leukopenia D72.819 Assessment & Plan Assessment & Plan (1) GERD (gastroesophageal reflux disease): Code(s): K21.9 - Gastro-esophageal reflux disease without esophagitis Category: Medical Plan: Avoid trigger foods such as citrus, tomato products, soda, caffeine, spicy foods and other foods that may be irritating to your stomach. Avoid laying flat 3-4 hours after eating and elevate the head of the bed 30 degrees to prevent acid from moving into the esophagus. Continue on omeprazole. (2) Morbid obesity with BMI of 40.0-44.9, adult: Code(s): E66.01 - Morbid (severe) obesity due to excess calories; Z68.41 - Body mass index [BMI] 40.0-44.9, adult Category: Medical Plan: Encouraged healthy diet and regular exercise. (3) TARA (obstructive sleep apnea): Comment: Can not tolerate CPAP Code(s): G47.33 - Obstructive sleep apnea (adult) (pediatric) Category: Medical (4) Hyperlipidemia: Code(s): E78.5 - Hyperlipidemia, unspecified Category: Medical Plan: Avoid foods that are high in cholesterol such as red meat, fried foods, eggs and baked goods. Triglyceride goal of less than 150 and LDL goal of less than 100. Not currently on medical management. (5) Hypertension: Code(s): I10 - Essential (primary) hypertension Category: Medical Plan: Continue on current blood pressure medication. Avoid salt intake and encourage healthy diet and regular exercise. Advised patient to begin taking blood pressures at home and bring log to next appointment. Blood pressure at goal today 120/82. (6) Leukopenia: Code(s): D72.819 - Decreased white blood cell count, unspecified Category: Medical Plan: Continue to follow with Hematology Oncology with follow up in 6 months. Plan This note was constructed using voice recognition software. While every effort has been made to ensure accuracy and call or contact centre coach, still areas may have been included sometimes these areas may affect the content or meeting of the given symptoms. Total time spent caring for the patient today was 30 minutes. This includes time spent before the visit reviewing the chart, time spent during the visit, and time spent after the visit and documentation.
[2024-06-25 15:28] VITALS: BP 120/82
== END 2024-06-25 15:33 | disposition home or self-care (01) ==
PROVIDERS: PCP Internal Medicine
DX: K21.9 Gastro-esophageal reflux disease without esophagitis (principal); E66.01 Morbid (severe) obesity due to excess calories; Z68.41 Body mass index [BMI] 40.0-44.9, adult; G47.33 Obstructive sleep apnea (adult) (pediatric); E78.5 Hyperlipidemia, unspecified; I10 Essential (primary) hypertension; D72.819 Decreased white blood cell count, unspecified

== ENCOUNTER → 2024-06-25 15:10 | Outpatient (BNVA) | payer OTHER, SELFPAY | PROVIDERS: PCP Internal Medicine | DX: K21.9 Gastro-esophageal reflux disease without esophagitis (principal); E66.01 Morbid (severe) obesity due to excess calories; Z68.41 Body mass index [BMI] 40.0-44.9, adult; G47.33 Obstructive sleep apnea (adult) (pediatric); E78.5 Hyperlipidemia, unspecified; I10 Essential (primary) hypertension; D72.819 Decreased white blood cell count, unspecified | CPT/HCPCS: 99212 ==

== ENCOUNTER 2024-08-05 14:58 | Outpatient (AMB) | payer OTHER, SELFPAY ==
[2024-08-05 15:03] VITALS: BP 124/90; PULSE 71; BMI 42.9
--- NOTE | 2024-08-05 15:03 | A.OFFVIS_ITS ---
Vital Signs 08/05/24 15:03 Height 5 ft 5 in Weight 257 lb 15.053 oz BMI 42.9 BP 124/90 H Blood Pressure Location Lt brachial Position Sitting Pulse 71 Pulse Source Monitor Intake Visit Reasons: 6 month f/u Allergies No Known Allergies Allergy (Verified 06/25/24 15:12) Medication List - Last Reconciled 08/05/24 by Bertrand Argueta MD atenolol 50 mg PO DAILY diclofenac sodium 1% (Arthritis Pain (diclofenac)) 4 grams topical QID fluticasone propionate 50 mcg/actuation 2 sprays intranasal DAILY omeprazole 20 mg PO DAILY timolol maleate 0.5% drps ophthalmic (eye) HPI Comments Details: Chandan returns for follow-up. Originally seen in consultation regarding palpitations. Has morbid obesity. No known coronary disease myocardial infarction. Has obstructive sleep apnea but not using CPAP. He underwent comprehensive workup including echocardiogram, stress test and Holter. Holter had shown atrial arrhythmias with rapid rate and he was put on beta-blockers. Since then, no further complaints. Essentially, he states he feels his normal self. He has a history of morbid obesity and underwent weight loss surgery in the past. Apparently was well into the 350+ lb in weight. He did lose lot of weight but gained some back as well. He is still morbidly obese. Unable to exercise because of foot pain extra. [facility] Medical History (Updated 08/05/24 @ 15:38 by Bertrand Argueta MD) Palpitations Internal hemorrhoids Torn ACL Back pain Depression GERD (gastroesophageal reflux disease) Hypertension Seasonal allergies Malabsorption due to intolerance, not elsewhere classified Obesity (BMI 30.0-34.9) Surgical History [place] teeth extracted S/P laparoscopic sleeve gastrectomy Family History Father Myocardial infarction Mother Brain tumor Diabetes CVD (cardiovascular disease) COPD (chronic obstructive pulmonary disease) Hypertension Sister No problems noted. Sister No problems noted. Daughter No problems noted. Maternal Grandmother Leukemia Social History Housing: Other Alcohol intake: current Alcohol intake frequency: a few times a week Patient Tobacco Use Status: Former Tobacco user Tobacco use type: Cigarette e-Cigarette/Vaping Use: Never Used Second Hand Smoke Exposure: Yes service: No Current occupational status: employed Cognitive needs: No Hearing needs: No Vision needs: Yes Review of Systems Const Denies weakness ENT Denies dizziness Card Denies chest pain, Denies chest pain with activity, Denies syncope, Denies rapid heart rate, Denies pedal edema, Denies edema, Denies leg edema, Denies lightheadedness, Denies palpitations, Denies dyspnea, Denies dyspnea on exertion and Denies orthopnea Resp Denies cough, Denies dyspnea and Denies dyspnea on exertion GI Denies hematochezia and Denies change in stool character Musc Denies abnormal gait, Denies muscle cramps, Denies muscle weakness, Denies numbness, Denies radiating pain into limb and Denies tingling Neuro Denies abnormal gait, Denies dizziness, Denies syncope, Denies numbness, Denies tingling and Denies weakness Endo Denies palpitations Physical Exam Vital Signs: Last Vital Signs Pulse 71 08/05/24 15:03 BP 124/90 H 08/05/24 15:03 BMI result Body Mass Index 42.9 Const General: comfortable and no acute distress Orientation/consciousness: patient oriented x3 HEENT Other: Unremarkable Head: Yes normal to inspection Neck Neck: Yes normal visual inspection Chest Chest palpation & inspection: normal inspection of the chest Resp Auscultation: clear to auscultation bilaterally Cardio Palpation: normal PMI Heart sounds: S1 normal heart sound present, S2 normal heart sound present, no gallops, no murmurs and no rubs GI Palpation (GI): Soft to palpation Back/Spine/Pelvis Other: unremarkable Skin General skin exam: no rashes or lesions noted Neuro General: patient oriented x3 Extrem General: Yes normal to inspection Psych Mental Status: mental status grossly normal Office Procedures EKG Details: EKG with underlying sinus rhythm at 71/Min; no significant ST-T changes and otherwise unremarkable[place] [id number], Complete Assessment & Plan Assessment & Plan (1) Atrial arrhythmia: Code(s): I49.8 - Other specified cardiac arrhythmias Category: Medical (2) Morbid obesity with BMI of 40.0-44.9, adult: Code(s): E66.01 - Morbid (severe) obesity due to excess calories; Z68.41 - Body mass index [BMI] 40.0-44.9, adult Category: Medical (3) TARA (obstructive sleep apnea): Comment: Cannot tolerate CPAP Code(s): G47.33 - Obstructive sleep apnea (adult) (pediatric) Category: Medical Plan Cardiac studies reviewed. EKG with sinus rhythm at 89/Min; voltage criteria for LVH; normal [place] and corrected QT. Echocardiogram with LVEF of 50%. No significant valvular issues. Exercise stress echocardiogram negative for ischemia at 10.9 METS workload. Th ere was also no evidence of exercise-induced diastolic dysfunction or pulmonary hypertension. In the Holter, frequent PVCs with a burden of 3%. Some short runs. Monomorphic. There is also frequent supraventricular ectopy. Several runs up to about an hour. Some rates are almost 200/Min. Could be AVNRT or flutter. Overall, he is stable on the current dose of beta-blockers and that can be cont inued. With regard to weight, still morbidly obese and he has a history of gastric sleeve surgery. He states he is unable to exercise because of foot pain. Unable to use CPAP as well. Hence atrial arrhythmias could be a long-term issue. We can repeat an echocardiogram/Holter in about 6 months' time. Orders: Orders 2 CA echo transthoracic complete 6 Months I47.10 - Supraventricular tachycardia, unspecified ECG 3 day holter monitor 6 Months I47.10 - Supraventricular tachycardia, unspecified, R00.2 - Palpitations Coding Level of Care Code Est Pt Level 4 (04154) Diagnoses Atrial arrhythmia I49.8 Morbid obesity with BMI of 40.0-44.9, adult E66.01; Z68.41 TARA (obstructive sleep apnea) G47.33 CPT Codes EKG - CPT: 57310-[id number], Complete ([id number])
== END 2024-08-05 15:26 | disposition home or self-care (01) ==
PROVIDERS: PCP Internal Medicine; Visit Provider Internal Medicine
DX: I49.8 Other specified cardiac arrhythmias (principal); E66.01 Morbid (severe) obesity due to excess calories; Z68.41 Body mass index [BMI] 40.0-44.9, adult; G47.33 Obstructive sleep apnea (adult) (pediatric)
CPT/HCPCS: 93010; 99214

== ENCOUNTER → 2024-08-05 14:58 | Outpatient (BNVA) | payer OTHER, SELFPAY | PROVIDERS: PCP Internal Medicine; Visit Provider Internal Medicine | DX: I49.8 Other specified cardiac arrhythmias (principal); G47.33 Obstructive sleep apnea (adult) (pediatric); E66.01 Morbid (severe) obesity due to excess calories; Z68.41 Body mass index [BMI] 40.0-44.9, adult | CPT/HCPCS: 93005; 99212 ==

== ENCOUNTER 2024-09-29 15:02 | Outpatient (AMB) | payer OTHER, SELFPAY ==
--- NOTE | 2024-09-29 15:13 | MHC.PC.OV ---
Vital Signs 09/29/24 15:15 Height 5 ft 5 in Weight 271 lb 8 oz BMI 45.2 BP 130/88 Blood Pressure Location Lt brachial Position Sitting Pulse 71 Pulse Source Pulse Oximeter Pulse Oximetry (%) 97 Oxygen Delivery Method Room Air Intake Visit Reasons: f/u TARA, BP Intake Note: Patient is here to follow up on TARA, BP. Yarn Handler Required: No Scalder: Not Required per policy Accompanied by: Self / Same As Patient Allergies No Known Allergies Allergy (Verified 09/29/24 15:14) Medication List - Last Reconciled 09/29/24 by Katey Schneider PA-C atenolol 50 mg PO DAILY diclofenac sodium 1% 4 grams topical BID fluticasone propionate 50 mcg/actuation 2 sprays intranasal DAILY omeprazole 20 mg PO DAILY timolol maleate 0.5% drps ophthalmic (eye) Tobacco use date assessed: 09/29/24 Dental Screening Dental Screen Date: 09/29/24 Did you have a dental visit in the last 12 months?: No Did you have a dental problem in the last 6 months where you did not have access to dental care?: No Was dental information given to patient?: No HPI f/u TARA, BP HPI Details 38-year-old male with past medical history of obesity, history of laparoscopic sleeve gastrectomy, obstructive sleep apnea not currently on CPAP, hypertension, hypercholesterolemia, history of SVT last seen 06/2024 coming in for follow up. In review of the notes, patient was seen by Cardiology 08/05/2024 regarding palpitations ordered for echocardiogram in 3 day Holter monitor in 6 months, continue on metoprolol. Patient tells us today his palpitations have been improved since starting the metoprolol and is no longer having chest pains or palpitations. He takes his medication every day without any side effects. He does tell us today he wakes up often at nighttime and occasionally will be gasping for air however he can not tolerate the CPAP but is looking for a 2nd opinion. He also mentions having decreased urination he states he goes to the bathroom 2-3 times per day but he drinks 4-5 water bottles per day. He denies sitting up at night to use the bathroom, pain with urination, foul urine odor or dark urine. [facility] Medical History Palpitations Internal hemorrhoids Torn ACL Back pain Depression GERD (gastroesophageal reflux disease) Hypertension Seasonal allergies Malabsorption due to intolerance, not elsewhere classified Obesity (BMI 30.0-34.9) Surgical History [place] teeth extracted S/P laparoscopic sleeve gastrectomy Family History Father Myocardial infarction Mother Brain tumor Diabetes CVD (cardiovascular disease) COPD (chronic obstructive pulmonary disease) Hypertension Sister No problems noted. Sister No problems noted. Daughter No problems noted. Maternal Grandmother Leukemia Social History Housing: Other Alcohol intake: current Alcohol intake frequency: a few times a week Patient Tobacco Use Status: Former Tobacco user Tobacco use type: Cigarette e-Cigarette/Vaping Use: Never Used Second Hand Smoke Exposure: Yes service: No Current occupational status: employed Cognitive needs: No Hearing needs: No Vision needs: Yes (Glasses) Questionnaire PHQ-9 Over the last 2 weeks, how often have you been bothered by any of the following problems? 1. Little interest or pleasure in doing things: not at all 2. Feeling down, depressed, or hopeless: not at all 3. Trouble falling or staying asleep, or sleeping too much: not at all 4. Feeling tired or having little energy: not at all 5. Poor appetite or overeating: not at all 6. Feeling bad about yourself - or that you are a failure or have let yourself or your family down: not at all 7. Trouble concentrating on things, such as reading the newspaper or watching television: not at all 8. Moving or speaking so slowly that other people could have noticed. Or the opposite - being so fidgety or restless that you have been moving around a lot more than usual: not at all 9. Thoughts that you would be better off or of hurting yourself in some way: not at all Total score: 0 Depression Screening Interpretation: Negative Depression Screening Done: Yes Source: Developed by Drs. Brendan Quintana, Amrita Ortiz, Michael Greene and colleagues, with an educational forrest from [employer]. Thrive Questionnaire Date Thrive assessed: 09/29/24 I am a: Patient What is your living situation today?: I have a steady place to live Within the past 12 months, did the food you bought not last and you didn't have the money to get more?: Never true Within the past 12 months, did you worry whether your food would run out before you got money to buy more?: Never true Do you have trouble paying for medicines?: No Do you have trouble getting transportation to medical appointments?: No Do you have trouble paying your heating and electricity bill?: No Do you have trouble taking care of your child, family member or friend?: No Do you have trouble with day-to-day activities such as bathing, preparing meals, shopping, managing finances, etc.?: No Are you currently unemployed and looking for a job?: No Are you interested in more education?: No Please select the resources that you would like help with: None Currently or been in a relationship where the following occur: No concerns reported THRIVE Score: 0 AUDIT C Alcohol Use Questionnaire (AUDIT-C) 1. How often do you have a drink containing alcohol?: Monthly or less 2. How many drinks containing alcohol do you have on a typical day when you are drinking?: 3 or 4 3. How often do you have six or more drinks on one occasion?: Less than monthly Total Score: 3 NOE-7 AMB Questionnaire NOE-7 Date NOE - 7 assessed: 09/29/24 Not being able to stop or control worryin = Not at all Worrying too much about different things: 0 = Not at all Trouble relaxin = Not at all Being so restless that it is hard to sit still: 0 = Not at all Becoming easily annoyed or irritable: 0 = Not at all Feeling afraid as if something awful might happen: 0 = Not at all Source: Developed by Drs. Brendan Quintana, Amrita Ortiz, Michael Greene and colleagues, with an educational forrest from [employer]. Review of Systems Const Denies body aches, Denies chills, Denies fever(s), Denies headache(s) and Denies poor appetite Eyes Reports no additional complaints ENT Denies dizziness and Denies headache(s) Card Denies chest pain, Denies syncope, Denies edema, Denies irregular heart rhythm, Denies lightheadedness and Denies dyspnea Resp Denies cough and Denies dyspnea GI Denies abdominal pain, Denies constipation, Denies diarrhea, Denies nausea and Denies vomiting Details: decreased urination Musc Reports no additional complaints and Denies abnormal gait Skin/Breast Reports system reviewed and no additional complaints, except as documented Neuro Denies abnormal gait, Denies dizziness, Denies syncope and Denies headache(s) Psych Reports no additional complaints Physical exam (Primary Care) Vital Signs: Last Vital Signs Pulse 71 09/29/24 15:15 BP 130/88 09/29/24 15:15 Pulse Ox 97 09/29/24 15:15 Oxygen Delivery Method Room Air 09/29/24 15:15 BMI result Body Mass Index 45.2 Tobacco/Smoking Status: Tobacco use Status Tobacco use date assessed 09/29/24 09/29/24 15:15 Patient Tobacco Use Status Former Tobacco user 09/29/24 15:15 Tobacco use type Cigarette 09/29/24 15:15 e-Cigarette/Vaping Use Never Used 09/29/24 15:15 PHQ-9: PHQ-9 Score PHQ-9: Total score 0 09/29/24 15:15 Depression Screening Interpretation: Negative Thrive Assessment: Date of Thrive Assessment Date Thrive assessed 09/29/24 09/29/24 15:15 Currently or been in a relationship where the following occur: No concerns reported Const General: cooperative, healthy appearing, comfortable and no acute distress Orientation/consciousness: patient oriented x3 HENMT Head: Yes normocephalic Ears: hearing grossly normal bilaterally General nose exam: Normal external nose present Eyes General: appearance normal, both eyes and all related structures Conjunctivae: conjunctivae normal Neck Neck: Yes full ROM and Yes no lymphadenopathy Resp Effort & Inspection: normal respiratory effort Auscultation: clear to auscultation bilaterally, no crackles, no rales, no rhonchi and no wheezes Cardio Rate: regular rate Rhythm: regular rhythm General: Yes no CVA tenderness Back/Spine/Pelvis Back: no CVA tenderness Skin General skin exam: no rashes or lesions noted Neuro General: patient oriented x3 Gait exam (Neuro): Normal gait present Extrem General: Yes normal to inspection, Yes full ROM and No edema Psych Affect: normal affect Attitude: cooperative Insight: Good insight present (Psych) Judgement: Good judgement present (Psych) Coding Level of Care Code Est Pt Level 4 (17189) Diagnoses TARA (obstructive sleep apnea) G47.33 Decreased urination R34 Morbid obesity with BMI of 40.0-44.9, adult E66.01; Z68.41 Hypertension I10 Assessment & Plan Assessment & Plan (1) TARA (obstructive sleep apnea): Comment: Cannot tolerate CPAP Code(s): G47.33 - Obstructive sleep apnea (adult) (pediatric) Category: Medical Plan: Patient can not tolerate CPAP but would like to discuss other options or possibly adjust his settings on his CPAP machine. referral placed to sleep medicine. (2) Decreased urination: Code(s): R34 - Anuria and oliguria Category: Medical Plan: Patient complaining of decreased urination and can not provide urinary sample today. Ordered for urinalysis as well as bladder ultrasound for further evaluation. Also ordered for updated blood work. Reviewed red flag symptoms and when to present for re-evaluation. (3) Morbid obesity with BMI of 40.0-44.9, adult: Code(s): E66.01 - Morbid (severe) obesity due to excess calories; Z68.41 - Body mass index [BMI] 40.0-44.9, adult Category: Medical Plan: Healthy diet and regular exercise is encouraged. (4) Hypertension: Code(s): I10 - Essential (primary) hypertension Category: Medical Plan: Continue on current blood pressure medication. Avoid salt intake and encourage healthy diet and regular exercise. Well controlled on metoprolol. Plan This note was constructed using voice recognition software. While every effort has been made to ensure accuracy and senior db2 systems programmer, still areas may have been included sometimes these areas may affect the content or meeting of the given symptoms. Total time spent caring for the patient today was 20 minutes. This includes time spent before the visit reviewing the chart, time spent during the visit, and time spent after the visit and documentation. Orders: Orders PSA, Ultra Sensitive Today R34 - Anuria and oliguria Comprehensive Met. Panel Today R34 - Anuria and oliguria UA CC w/rflx Micro + Cult Today R35.89 - Other polyuria US bladder Today R34 - Anuria and oliguria Referrals Sleep Medicine Referral G47.33 - Obstructive sleep apnea (adult) (pediatric)
[2024-09-29 15:15] VITALS: BP 130/88; PULSE 71; O2SAT 97; BMI 45.2
== END 2024-09-29 15:49 | disposition home or self-care (01) ==
PROVIDERS: PCP Internal Medicine
DX: G47.33 Obstructive sleep apnea (adult) (pediatric) (principal); R34 Anuria and oliguria; E66.01 Morbid (severe) obesity due to excess calories; Z68.41 Body mass index [BMI] 40.0-44.9, adult; I10 Essential (primary) hypertension

== ENCOUNTER → 2024-09-29 15:02 | Outpatient (BNVA) | payer OTHER, SELFPAY | PROVIDERS: PCP Internal Medicine | DX: G47.33 Obstructive sleep apnea (adult) (pediatric) (principal); R34 Anuria and oliguria; E66.01 Morbid (severe) obesity due to excess calories; Z68.41 Body mass index [BMI] 40.0-44.9, adult; I10 Essential (primary) hypertension | CPT/HCPCS: 99212 ==

== ENCOUNTER 2024-10-03 10:33 | Outpatient (REF) | payer OTHER, SELFPAY ==
[2024-10-03 11:53] LABS: Appearance Urine Clear; Color Urine Yellow; Glucose Urine UA Negative (Negative); Leukocyte Esterase Urine Trace (Negative); Nitrite Urine Negative (Negative); Specific Gravity - Urine >= 1.030 (1.005-1.025); UMIC TRIGGER UACC YES; Urine Blood Negative (Negative); Urine Ketones Negative (Negative); Urine Protein Negative (Neg-Trace)
[2024-10-03 11:56] LABS: Bacteria Urine None Seen (None Seen); Hyaline Casts Urine 0-2 /LPF (0-2); RBC Urine 0-2 /HPF (0-2); Squamous Epithelial Cell Urine 0-2 /HPF (0-2); WBC Urine 0-5 /HPF (0-5)
[2024-10-03 12:32] LABS: Alanine Aminotransferase 26 U/L (0-40); Albumin Level 4.7 g/dL (3.5-5.0); Alkaline Phosphatase 68 U/L (39-117); Anion Gap 10 (12-20); Aspartate Amino Transferase 24 U/L (5-37); Bilirubin Total 1.5 mg/dL (0.0-1.0); Blood Urea Nitrogen 16 mg/dL (9-16); Calcium 9.4 mg/dL (8.4-10.2); Carbon Dioxide 28 mmol/L (22-29); Chloride 105 mmol/L (96-108); Estimated Glomerular Filt Rate > 60; Glucose Random 88 mg/dL (60-115); Potassium 4.6 mmol/L (3.3-5.1); Sodium 138 mmol/L (135-145); Total Protein 8.2 g/dL (6.5-8.0)
[2024-10-07 19:12] LABS: PSA, Ultra Sensitive 0.83 ng/mL
== END 2024-10-03 10:34 | disposition home or self-care (01) ==
LOC: HO.LAB 10:33
PROVIDERS: PCP Internal Medicine
DX: R34 Anuria and oliguria (principal)
CPT/HCPCS: 36415; 80053; 81001; 84153

== ENCOUNTER → 2024-10-21 15:17 | Outpatient (BNV) | payer OTHER, SELFPAY | PROVIDERS: PCP Internal Medicine; Visit Provider Radiology Diagnostic Radiology | DX: R34 Anuria and oliguria (principal) | CPT/HCPCS: 76857 ==

== ENCOUNTER 2025-01-05 10:18 | Outpatient (AMB) | payer OTHER, SELFPAY ==
--- NOTE | 2025-01-05 10:28 | A.OFFPC_ITS ---
Vital Signs 01/05/25 10:30 Height 5 ft 5 in Weight 258 lb 8 oz BMI 43.0 BP 120/80 Blood Pressure Location Lt brachial Position Sitting Pulse 82 Pulse Source Pulse Oximeter Temp 97.1 F Temp Source Temporal Artery Scan Pulse Oximetry (%) 97 Oxygen Delivery Method Room Air Intake Visit Reasons: 3 month f/u TARA Intake Note: Patient is here to follow up on TARA. Frameman Required: No Stenotype Operator: Not Required per policy Accompanied by: Self / Same As Patient Allergies No Known Allergies Allergy (Verified 01/05/25 10:37) Medication List - Last Reconciled 01/05/25 by Katey Schneider PA-C atenolol 50 mg PO DAILY diclofenac sodium 1% 4 grams topical BID fluticasone propionate 50 mcg/actuation 2 sprays intranasal DAILY omeprazole 20 mg PO DAILY timolol maleate 0.5% drps ophthalmic (eye) Tobacco use date assessed: 01/05/25 Dental Screening Dental Screen Date: 09/29/24 HPI 3 month f/u TARA HPI Details 38-year-old male with past medical histo ry of obesity, history of laparoscopic sleeve gastrectomy, obstructive sleep apnea not currently on CPAP, hypertension, hypercholesterolemia, history of SVT last seen 09/2024 coming in for follow up. Presenting with follow-up for urinary issues, arthritis, and sleep apnea. He has urinary retention issues showing an enlarged prostate in imaging, although he notes an improvement with increased water intake. Dissatisfaction with CPAP mask for managing sleep apnea is reported. Arthritis is present in the thumb with ineffective topical cream use for relief and significant pain during manual tasks such as opening jars. Notably, there is a history of low white blood cell count fluctuations under ongoing hematological evaluation. [facility] Medical History Palpitations Internal hemorrhoids Torn ACL Back pain Depression GERD (gastroesophageal reflux disease) Hypertension Seasonal allergies Malabsorption due to intolerance, not elsewhere classified Obesity (BMI 30.0-34.9) Surgical History [place] teeth extracted S/P laparoscopic sleeve gastrectomy Family History Father Myocardial infarction Mother Brain tumor Diabetes CVD (cardiovascular disease) COPD (chronic obstructive pulmonary disease) Hypertension Sister No problems noted. Sister No problems noted. Daughter No problems noted. Maternal Grandmother Leukemia Social History Housing: Other Alcohol intake: current Alcohol intake frequency: a few times a week Patient Tobacco Use Status: Former Tobacco user Tobacco use type: Cigarette e-Cigarette/Vaping Use: Never Used Second Hand Smoke Exposure: Yes service: No Current occupational status: employed Cognitive needs: No Hearing needs: No Vision needs: Yes (Glasses) Questionnaire Thrive Questionnaire Date Thrive assessed: 09/29/24 NOE-7 AMB Questionnaire NOE-7 Date NOE - 7 assessed: 09/29/24 Source: Developed by Drs. Brendan Quintana, Amrita Ortiz, Michael Greene and colleagues, with an educational forrest from judo. Review of Systems Const Denies body aches, Denies chills, Denies fever(s), Denies headache(s) and Denies poor appetite Eyes Reports no additional complaints ENT Denies dizziness and Denies headache(s) Card Denies chest pain, Denies irregular heart rhythm, Denies lightheadedness and Denies dyspnea Resp Denies dyspnea Reports no additional complaints Musc Reports no additional complaints and Denies abnormal gait Skin/Breast Reports system reviewed and no additional complaints, except as documented Neuro Denies abnormal gait, Denies dizziness and Denies headache(s) Psych Reports no additional complaints Physical exam (Primary Care) Tobacco/Smoking Status: Tobacco use Status Tobacco use date assessed 09/29/24 09/29/24 15:15 Patient Tobacco Use Status Former Tobacco user 09/29/24 15:15 Tobacco use type Cigarette 09/29/24 15:15 e-Cigarette/Vaping Use Never Used 09/29/24 15:15 Thrive Assessment: Date of Thrive Assessment Date Thrive assessed 09/29/24 09/29/24 15:15 Const General: cooperative, healthy appearing, comfortable and no acute distress Orientation/consciousness: patient oriented x3 HENMT Head: Yes normocephalic Ears: hearing grossly normal bilaterally General nose exam: Normal external nose present Eyes General: appearance normal, both eyes and all related structures Conjunctivae: conjunctivae normal Neck Neck: Yes full ROM and Yes no lymphadenopathy Resp Effort & Inspection: normal respiratory effort Auscultation: clear to auscultation bilaterally, no crackles, no rales, no rhonchi and no wheezes Cardio Rate: regular rate Rhythm: regular rhythm Skin General skin exam: no rashes or lesions noted Neuro General: patient oriented x3 Gait exam (Neuro): Normal gait present Extrem General: Yes normal to inspection, Yes full ROM and No edema Psych Affect: normal affect Attitude: cooperative Insight: Good insight present (Psych) Judgement: Good judgement present (Psych) Coding Level of Care Code Est Pt Level 4 (83960) Diagnoses GERD (gastroesophageal reflux disease) K21.9 Morbid obesity with BMI of 40.0-44.9, adult E66.01; Z68.41 TARA (obstructive sleep apnea) G47.33 Hypertension I10 Hyperlipidemia E78.5 Decreased urination R34 Enlarged prostate N40.0 Pain of right thumb M79.644 Assessment & Plan Assessment & Plan (1) GERD (gastroesophageal reflux disease): Code(s): K21.9 - Gastro-esophageal reflux disease without esophagitis Category: Medical Plan: Avoid trigger foods such as citrus, tomato products, soda, caffeine, spicy foods and other foods that may be irritating to your stomach. Avoid laying flat 3-4 hours after eating and elevate the head of the bed 30 degrees to prevent acid from moving into the esophagus. (2) Morbid obesity with BMI of 40.0-44.9, adult: Code(s): E66.01 - Morbid (severe) obesity due to excess calories; Z68.41 - Body mass index [BMI] 40.0-44.9, adult Category: Medical Plan: Healthy diet and regular exercise is encouraged. (3) TARA (obstructive sleep apnea): Comment: Cannot tolerate CPAP Code(s): G47.33 - Obstructive sleep apnea (adult) (pediatric) Category: Medical Plan: Patient can not tolerate CPAP but would like to discuss other options or possibly adjust his settings on his CPAP machine. referral placed to sleep medicine. Neurology appt in January. (4) Hypertension: Code(s): I10 - Essential (primary) hypertension Category: Medical Plan: Continue on current blood pressure medication. Avoid salt intake and encourage healthy diet and regular exercise. (5) Hyperlipidemia: Code(s): E78.5 - Hyperlipidemia, unspecified Category: Medical Plan: Avoid foods that are high in cholesterol such as red meat, fried foods, eggs and baked goods. Triglyceride goal of less than 150 and LDL goal of less than 100. (6) Decreased urination: Code(s): R34 - Anuria and oliguria Category: Medical Plan: Decreased urination has resolved with adequate water intake. We did incidentally see his prostate was enlarged on bladder ultrasound. Referral was placed to Urology for further evaluation. (7) Enlarged prostate: Code(s): N40.0 - Benign prostatic hyperplasia without lower urinary tract symptoms Category: Medical Plan: Referral was placed to Urology for further evaluation (8) Pain of right thumb: Code(s): M79.644 - Pain in right finger(s) Category: Medical Plan: Patient having pain of the right thumb which he attributes to arthritis. Plan to obtain x-ray and referral was placed to orthopedics. He has been trying diclofenac gel without good relief. Plan The plan includes a referral to urology for prostate evaluation due to urinary retention, consideration of CPAP mask alternatives due to dissatisfaction for sleep apnea management, and orthopedic consultation for arthritis in the thumb. An x-ray has been ordered to assist the orthopedic assessment. Coordination with hematology will help monitor low white blood cell count, with rescheduled appointments and fasting for blood tests. The patient has scheduled follow-ups with neurology and cardiology, keeping in view his busy schedules. This note was constructed using voice recognition software. While every effort has been made to ensure accuracy and coal digger, still areas may have been included sometimes these areas may affect the content or meeting of the given symptoms. Total time spent caring for the patient today was 20 minutes. This includes time spent before the visit reviewing the chart, time spent during the visit, and time spent after the visit and documentation. Patient was informed and verbally consented to the use of an ambient scribe for clinic note documentation during this visit. Orders: Orders Hemoglobin A1c Today Z13.1 - Encounter for screening for diabetes mellitus Lipid Panel Today E78.00 - Pure hypercholesterolemia, unspecified XR hand RT 2V Today M79.644 - Pain in right finger(s) Referrals Urology Referral N40.0 - Benign prostatic hyperplasia without lower urinary tract symptoms Orthopedics Referral M79.644 - Pain in right finger(s)
[2025-01-05 10:30] VITALS: BP 120/80; PULSE 82; TEMP 36.2; O2SAT 97; BMI 43.0
== END 2025-01-05 10:56 | disposition home or self-care (01) ==
LOC: HO.HMCH 10:19
PROVIDERS: PCP Internal Medicine
DX: K21.9 Gastro-esophageal reflux disease without esophagitis (principal); E66.01 Morbid (severe) obesity due to excess calories; Z68.41 Body mass index [BMI] 40.0-44.9, adult; G47.33 Obstructive sleep apnea (adult) (pediatric); I10 Essential (primary) hypertension; E78.5 Hyperlipidemia, unspecified; R34 Anuria and oliguria; N40.0 Benign prostatic hyperplasia without lower urinary tract symptoms; M79.644 Pain in right finger(s)

== ENCOUNTER → 2025-01-05 10:18 | Outpatient (BNVA) | payer OTHER, SELFPAY | PROVIDERS: PCP Internal Medicine | DX: K21.9 Gastro-esophageal reflux disease without esophagitis (principal); E66.01 Morbid (severe) obesity due to excess calories; Z68.41 Body mass index [BMI] 40.0-44.9, adult; G47.33 Obstructive sleep apnea (adult) (pediatric); I10 Essential (primary) hypertension; E78.5 Hyperlipidemia, unspecified; R34 Anuria and oliguria; N40.0 Benign prostatic hyperplasia without lower urinary tract symptoms; M79.644 Pain in right finger(s) | CPT/HCPCS: 99212 ==

== ENCOUNTER → 2025-02-02 13:10 | Outpatient (REF) | payer OTHER, SELFPAY ==
--- NOTE | ~2025-02-02 | XR_ITS ---
EXAMINATION: XR HAND, RIGHT CLINICAL INFORMATION: M79.644 - Pain in right finger(s) COMPARISON: None available. TECHNIQUE: PA, lateral, and oblique views of the right hand. FINDINGS: Old traumatic deformity with volar angulation involving the mid to distal diaphysis, fifth metacarpal. No acute cortical disruption. No gross malalignment between the carpal bones or the phalanges of the digits. There is preservation of the joint spaces. No lytic or blastic lesions. No metallic or radiopaque foreign bodies. No subcutaneous emphysema. XR/XR hand RT min 3V IMPRESSION: Old traumatic deformity, fifth metacarpal. Electronically signed by: Eulogio Mcnamara MD 02/02/2025 01:58 PM EDT
--- NOTE | 2025-02-02 13:21 | CA_ITS ---
Transthoracic Echocardiogram Patient (Last, First, Middle): Chandan Astudillo, Gender: Male Date of : 1985 Age: 39 Procedure Date: 02/02/2025 Procedure Type: Transthoracic Echocardiogram Location: OP Height: 165.1 cm Weight: 117.03 kg BSA: 2.20 m2 Heart Rate: 67 bpm BP: 124 / 74 mmHg Circular Sawyer Helper: SB Referring MD: Bertrand Argueta MD Symptoms: I47.10 - Supraventricular tachycardia, unspecified Study Quality: Adequate w contrast ECG Rhythm: Sinus with PVCs Conclusions: - The left ventricular systolic function is low normal. The visually estimated ejection fraction is between 50-55%. - No obvious valvular pathology seen on this study. Findings Procedure Information Contrast agent, definity, is being given per protocol without apparent complications. Left Ventricle Normal left ventricular cavity size. The left ventricular systolic function is low normal. The visually estimated ejection fraction is between 50-55%. There is no evidence of regional wall motion abnormalities. Diastolic function is normal for age. There is mild septal asymmetric hypertrophy. Right Ventricle Normal right ventricular cavity size and systolic function. Atria Both atria are normal in size. Aortic Valve There is mild calcification of the aortic valve. There is no aortic valve stenosis. There is trace (trivial) aortic valve regurgitation. Mitral Valve The mitral valve appears normal. There is no mitral valve regurgitation. There is no mitral valve stenosis. Pulmonic Valve The pulmonic valve is likely normal. Tricuspid Valve There is no tricuspid valve regurgitation. Tricuspid regurgitation envelope is inadequate for calculation of right ventricular systolic pressure. Great Vessels The asc aorta is normal in size. Venous The inferior vena cava is normal in size and collapses greater than 50% with inspiration. Pericardium/Pleural There is no evidence of pericardial effusion. Prior Study Comparison No significant change compared to prior study dated: 10/08/2023. Recommendations, Care & Conclusions No obvious valvular pathology seen on this study. Measurements 2D Linear Measurements IVSd: 0.82 0.6-0.9/0.6-1.0 cm LVIDd: 5.83 3.9-5.3/4.2-5.9 cm LVIDd Index: 2.65 2.4-3.2/2.2-3.1 cm/m2 LVIDs: 4.15 2.0-3.6 cm LVPWd: 0.89 0.7-1.1 cm LA Diam: 4.10 2.7-3.8/3.0-4.0 cm LAIDs Index: 1.86 1.5-2.3 cm/m2 LV Mass: 239.55 67-162/88-224 g LV Mass Index: 108.89 43-95/49-115 g/m2 LVOT Diam: 2.40 3.0+(-)1.3 cm 2D Systolic Function EF 4C: 47.40 >55% EF 2C: 63.30 >55% EF BiP: 55.40 >55% Mitral Valve MV Pk E: 0.70 MV PK A: 0.67 MV Decel Time: 201.00 E/A: 1.00 E'Lateral: 6.31 E'Medial: 6.20 E/E' Med: 11.30 E/E' Lat: 11.10 PHT: 59.00 MVA PHT: 3.73 Decel [place]: 3.49 Aortic Valve AoV Pk Che[place]: 1.53 AoV Pk Grad: 9.00 SISSY: 2.45 AI Pk [place]: 4.26 AI [place]: 1.44 LVOT LVOT Pk Che[place]: 0.85 LVOT Mn Che[place]: 0.59 LVOT VTI: 0.16 LVOT Pk Grad: 3.00 LVOT Mn Grad: 2.00 LVOT Diam: 2.40 LVOT Area: 4.52 Diastolic Function MV Pk E: 0.70 MV Pk A: 0.67 E/A: 1.00 E'Medial: 6.20 E/E' Med: 11.30 E' Laterial: 6.31 E/E' Lat: 11.10 Right Ventricle TVS' Che[place]: 13.20 Tricuspid Valve RA Press: 3.00 Great Vessels Aorta Sinus of Valsalva: 3.50 2.0-3.5 cm Ao Asc: 3.80 2.1-3.4 cm Pulmonary Veins Pulm Vein S/D 1.20 Pulmonary Valve PV Pk Cheo: 1.43 Peak PV Grad: 8.00 Updated in Other Vendor System with Status of Final Bertrand Argueta MD electronically signed on 02/03/2025 12:49:55 PM with status of Final
[2025-02-02 14:03] LABS: Estimated Average Glucose 111 mg/dL; Hemoglobin A1C 147.4433 umol/L; Hemoglobin A1c % 5.5 % (<6.0); Total Hemoglobin (HGBA1C) 4030.3851 umol/L
[2025-02-02 14:16] LABS: Cholesterol 248 mg/dL (<200); HDL Cholesterol 56 mg/dL (>40); LDL Cholesterol Calculated 156 mg/dL (<100); Triglycerides 184 mg/dL (<150)
== END ==
LOC: HO.CARD 13:10
PROVIDERS: PCP Internal Medicine; Visit Provider Internal Medicine
DX: R00.2 Palpitations (principal); I47.10 Supraventricular tachycardia, unspecified; E78.00 Pure hypercholesterolemia, unspecified; Z13.1 Encounter for screening for diabetes mellitus
CPT/HCPCS: 36415; 73130; 80061; 83036; 93242; 93306; Q9957

== ENCOUNTER → 2025-02-02 13:21 | Outpatient (BNV) | payer OTHER, SELFPAY | PROVIDERS: PCP Internal Medicine; Visit Provider Internal Medicine | DX: I42.2 Other hypertrophic cardiomyopathy (principal); I35.8 Other nonrheumatic aortic valve disorders | CPT/HCPCS: 93306 ==

== ENCOUNTER → 2025-02-02 13:22 | Outpatient (BNV) | payer OTHER, SELFPAY | PROVIDERS: PCP Internal Medicine; Visit Provider Radiology Diagnostic Radiology | DX: M79.644 Pain in right finger(s) (principal) | CPT/HCPCS: 73130 ==

== ENCOUNTER 2025-03-17 10:25 | Outpatient (AMB) | payer OTHER, SELFPAY ==
--- NOTE | 2025-03-17 10:43 | A.OFFVIS_ITS ---
Vital Signs 03/17/25 10:44 Height 5 ft 5 in Weight 274 lb 11.135 oz BMI 45.7 BP 120/80 Blood Pressure Location Lt brachial Position Sitting Pulse 77 Pulse Source Pulse Oximeter Intake Visit Reasons: 6 months f/up testings Lithopone Charger Required: No Accompanied by: Self / Same As Patient Allergies No Known Allergies Allergy (Verified 03/10/25 13:43) Medication List - Last Reconciled 03/17/25 by Bertrand Argueta MD atenolol 50 mg PO DAILY diclofenac sodium 1% 4 grams topical BID fluticasone propionate 50 mcg/actuation 2 sprays intranasal DAILY omeprazole 20 mg PO DAILY simvastatin 10 mg PO BEDTIME timolol maleate 0.5% 0.5 drps ophthalmic (eye) DAILY HPI Comments Details: Chandan returns for follow-up. Originally seen in consultation regarding palpitations. Has morbid obesity. No known coronary disease or myocardial infarction. Has obstructive sleep apnea but not using CPAP. He underwent comprehensive workup including echocardiogram, stress test and Holter. Holter had shown atrial arrhythmias with rapid rate and he was put on beta-blockers. Overall, he states he is actually feeling quite well. Weight is not much change. He has had weight loss surgery in the past and lost some weight but gained back as well. He does not really feel any palpitations. He eats a lot of unhealthy foods it seems. [facility] Medical History Palpitations Internal hemorrhoids Torn ACL Back pain Depression GERD (gastroesophageal reflux disease) Hypertension Seasonal allergies Malabsorption due to intolerance, not elsewhere classified Obesity (BMI 30.0-34.9) Surgical History [place] teeth extracted S/P laparoscopic sleeve gastrectomy Family History Father Myocardial infarction Mother Brain tumor Diabetes CVD (cardiovascular disease) COPD (chronic obstructive pulmonary disease) Hypertension Sister No problems noted. Sister No problems noted. Daughter No problems noted. Maternal Grandmother Leukemia Social History Housing: Other Alcohol intake: current Alcohol intake frequency: a few times a week Patient Tobacco Use Status: Former Tobacco user Tobacco use type: Cigarette e-Cigarette/Vaping Use: Never Used Second Hand Smoke Exposure: Yes service: No Current occupational status: employed Cognitive needs: No Hearing needs: No Vision needs: Yes (Glasses) Review of Systems Const Denies chills, Denies fatigue, Denies fever(s), Denies frequent falls, Denies weakness, Denies weight gain and Denies weight loss ENT Denies dizziness Card Denies chest pain, Denies leg edema, Denies lightheadedness, Denies palpitations, Denies dyspnea and Denies dyspnea on exertion Resp Denies cough, Denies dyspnea and Denies dyspnea on exertion GI Denies hematochezia Musc Denies abnormal gait, Denies muscle weakness, Denies numbness, Denies radiating pain into limb and Denies tingling Neuro Denies abnormal gait, Denies dizziness, Denies frequent falls, Denies numbness, Denies tingling and Denies weakness Endo Denies fatigue and Denies palpitations Physical Exam Vital Signs: Last Vital Signs Pulse 77 03/17/25 10:44 BP 120/80 03/17/25 10:44 BMI result Body Mass Index 45.7 Const General: comfortable and no acute distress Orientation/consciousness: patient oriented x3 HEENT Other: Unremarkable Head: Yes normal to inspection Neck Neck: Yes normal visual inspection Chest Chest palpation & inspection: normal inspection of the chest Resp Auscultation: clear to auscultation bilaterally Cardio Palpation: normal PMI Heart sounds: S1 normal heart sound present, S2 normal heart sound present, no gallops, no murmurs and no rubs GI Palpation (GI): Soft to palpation Back/Spine/Pelvis Other: unremarkable Skin General skin exam: no rashes or lesions noted Neuro General: patient oriented x3 Extrem General: Yes normal to inspection Psych Mental Status: mental status grossly normal Assessment & Plan Assessment & Plan (1) PAF (paroxysmal atrial fibrillation): Code(s): I48.0 - Paroxysmal atrial fibrillation Category: Medical (2) Atrial arrhythmia: Code(s): I49.8 - Other specified cardiac arrhythmias Category: Medical (3) Morbid obesity with BMI of 40.0-44.9, adult: Code(s): E66.01 - Morbid (severe) obesity due to excess calories; Z68.41 - Body mass index [BMI] 40.0-44.9, adult Category: Medical (4) TARA (obstructive sleep apnea): Comment: Cannot tolerate CPAP Code(s): G47.33 - Obstructive sleep apnea (adult) (pediatric) Category: Medical Plan Cardiac studies reviewed. In the recent echocardiogram, LVEF is 50-55%. No significant valvular findings. Exercise stress echocardiogram negative for ischemia at 10.9 METS workload. There was also no evidence of exercise-induced diastolic dysfunction or pulmonary hypertension. In the recent Holter monitor, underlying rhythm is sinus. Atrial arrhythmias noted. Atrial flutter versus fibrillation but noted only for 0.06% of the time longest episode was one minute. Previously thought to be flutter but again difficult to be definitive. Supraventricular ectopy noted for about 2.5%. Ventricular ectopy 1.9%. Couplets and triplets noted. Overall, morbid obesity, noncompliance with CPAP, atrial and ventricular ar rhythmias as above. Main recommendation is still lose weight as much able. May continue the beta-blockers. Advised him to get the CPAP set up and start using it. Follow up in about 6 months' time. Discussion Notes I discussed with the patient the importance of using the CPAP machine to improve sleep quality and potentially reduce cardiac symptoms. We talked about the need for weight management through exercise and dietary changes, and I encouraged him to resume evening walks. I advised the patient to manage anxiety, which may be contributing to his cardiac symptoms, and we agreed on a follow-up in six months to evaluate his progress. Patient was informed and verbally consented to the use of an ambient scribe for clinic note documentation during this visit. Patient Instructions: - Start using the CPAP machine as soon as possible to improve sleep quality. - Begin walking to aid in weight management. - Consider dietary changes to support weight loss. - Manage anxiety to help reduce episodes of cardiac arrhythmia. - Follow up in six months or sooner if symptoms worsen. Coding Level of Care Code Est Pt Level 4 (10596) Complex EM visit Add On G2211 Diagnoses PAF (paroxysmal atrial fibrillation) I48.0 Atrial arrhythmia I49.8 Morbid obesity with BMI of 40.0-44.9, adult E66.01; Z68.41 TARA (obstructive sleep apnea) G47.33
[2025-03-17 10:44] VITALS: BP 120/80; PULSE 77; BMI 45.7
== END 2025-03-17 11:11 | disposition home or self-care (01) ==
LOC: HO.HCS 10:25
PROVIDERS: PCP Internal Medicine; Visit Provider Internal Medicine
DX: I48.0 Paroxysmal atrial fibrillation (principal); I49.8 Other specified cardiac arrhythmias; E66.01 Morbid (severe) obesity due to excess calories; Z68.41 Body mass index [BMI] 40.0-44.9, adult; G47.33 Obstructive sleep apnea (adult) (pediatric)
CPT/HCPCS: 99214; G2211

== ENCOUNTER → 2025-03-17 10:25 | Outpatient (BNVA) | payer OTHER, SELFPAY | PROVIDERS: PCP Internal Medicine; Visit Provider Internal Medicine | DX: E66.01 Morbid (severe) obesity due to excess calories (principal); R00.2 Palpitations; I48.0 Paroxysmal atrial fibrillation; I49.8 Other specified cardiac arrhythmias; Z68.41 Body mass index [BMI] 40.0-44.9, adult; G47.33 Obstructive sleep apnea (adult) (pediatric) | CPT/HCPCS: 99212 ==

== ENCOUNTER 2025-03-24 15:58 | Outpatient (REF) | payer OTHER, SELFPAY | END 2025-03-24 15:59 | disposition home or self-care (01) | LOC: HO.HOSX 15:58 | PROVIDERS: Visit Provider Orthopaedic Surgery | DX: Z13.89 Encounter for screening for other disorder (principal) ==

== ENCOUNTER 2025-04-03 13:44 | Outpatient (AMB) | payer OTHER, SELFPAY ==
--- NOTE | 2025-04-03 13:58 | A.OFFVIS_ITS ---
Vital Signs 04/03/25 13:59 Height 5 ft 5 in Weight 271 lb 2 oz BMI 45.1 BP 122/80 Blood Pressure Location Lt brachial Position Sitting Pulse 67 Pulse Source Pulse Oximeter Pulse Oximetry (%) 95 Oxygen Delivery Method Room Air Intake Visit Reasons: I-WAREHOUSE SELECTOR: TARA Intake Note: Patient presents WAREHOUSE SELECTOR TARA. Patient can not tolerate CPAP but would like to discuss other options or possibly adjust his settings on his CPAP machine. referral placed to sleep medicine. Patient states not using CPAP due to getting really bad dry mouth. Accompanied by: Self / Same As Patient Allergies No Known Allergies Allergy (Verified 04/03/25 14:02) HPI Comments Details: 39 year old male has been referred to sleep medicine by his cpap for evalution of sleep apnea. titration was completed and he was started on Bipap HST c/w severe tara AHI is 47.9 and oxygen Nadirs to 57%. He is no longer being followed by weight management. They assigned him with the cpap machine and he gasps for air daily at night and snores loudly if the cpap is not on. He has been diagnosed with TARA and he gets dry mouth when he uses his CPAP. He is unable to tolerate cpap use. Xylmelts tablets, temperature settings will be adjusted with his cpap company [employer]. He thinks he is grinding his teeth at night, he his very tense in the neck and face when he wakes up in the morning. He has morning headaches, he has not tried taking anything. He has blurry vision in the medial aspect of the r. eye, followed by and regulatory specialist Carlos Sood. Goes to bed at 9pm and wakes up at 7am. RLS symptoms he moves his legs all night long, bilateral shock like sensation r>l, denies numbness and tingling. FH +pacemaker dad, mom has a tumor, stroke, cardiomegaly and diabetic. Paternal Grand father Parkinson, maternal grand father alzheimer. He washes his bipap hoses, mask, changes filters and water daily. [facility] Medical History Palpitations Internal hemorrhoids Torn ACL Back pain Depression GERD (gastroesophageal reflux disease) Hypertension Seasonal allergies Malabsorption due to intolerance, not elsewhere classified Obesity (BMI 30.0-34.9) Surgical History [place] teeth extracted S/P laparoscopic sleeve gastrectomy Family History Father Myocardial infarction Mother Brain tumor Diabetes CVD (cardiovascular disease) COPD (chronic obstructive pulmonary disease) Hypertension Sister No problems noted. Sister No problems noted. Daughter No problems noted. Maternal Grandmother Leukemia Social History Housing: Other Alcohol intake: current Alcohol intake frequency: a few times a week Patient Tobacco Use Status: Former Tobacco user Tobacco use type: Cigarette e-Cigarette/Vaping Use: Never Used Second Hand Smoke Exposure: Yes service: No Current occupational status: employed Cognitive needs: No Hearing needs: No Vision needs: Yes (Glasses) Physical Exam Vital Signs: Last Vital Signs Pulse 67 04/03/25 13:59 BP 122/80 04/03/25 13:59 Pulse Ox 95 04/03/25 13:59 Oxygen Delivery Method Room Air 04/03/25 13:59 BMI result Body Mass Index 45.1 BMI is 45.1 Const General: cooperative, comfortable and no acute distress Nutritional Appearance: obese Orientation/consciousness: patient oriented x3 Limitations: no limitations HEENT Face and sinus: Yes face symmetric Throat: Yes other ([place] score is 3) Eyes Pupils: Equal, round and reactive pupils present Neck Neck: Yes full ROM Resp Effort & Inspection: normal respiratory effort and able to speak in complete sentences Neuro General: patient oriented x3 and moves all extremities Cranial nerves: Yes Equal, round and reactive pupils present, Yes Normal accommodation reflex present, Yes Midline tongue present, Yes Ability to bilaterally rotate head present and Yes Ability to bilaterally elevate shoulders present Cognition (Neuro): normal cognition Gait exam (Neuro): Normal gait present Motor exam (neuro): 5/5 motor strength present throughout Psych Appearance: grossly normal Attitude: cooperative Thought process: Normal thought process present Thought content: Normal thought content present Results Reviewed Results Reviewed: Conclusion: 1. Patient was monitored for total period of 2 days and 22 hours 2. Baseline was normal sinus rhythm with average heart of 88 beats per minute 3. Intermittent episodes of regular narrow complex tachycardia which could represent atrial flutter with total burden of 0.36% with longest episode lasting 1 minute and 6 seconds 4. Frequent PACs and PVCs noted 5. 10 episodes of 3 beat salvos of nonsustained VT, fastest at 216 beats per mi nute 6. No patient reported events Assessment & Plan Assessment & Plan (1) TARA treated with BiPAP: Comment: Code(s): G47.33 - Obstructive sleep apnea (adult) (pediatric) Category: Medical (2) TARA (obstructive sleep apnea): Comment: Cannot tolerate CPAP/ bipap will evaluate with ENT if dry mouth does not improve with humidification xylemelt Code(s): G47.33 - Obstructive sleep apnea (adult) (pediatric) Category: Medical Plan PSG evaluate tara he is on bipap therapy since 2024 not evaluated. Dry mouth trial Xylemet tab and adjust humidification of temperature [facility]. Labs to r/o fatigue. 3month f/u. Patient Instructions: Sleep Hygiene provided: set a scheduled bedtime and wake time to help regulate the circadian rhythm and balance the release of pituitary hormones. Sleep in a dark room, temperatures below 68 degrees, and no devices n bed. Limit caffeinated products 6 hours prior to bed, and limit fluids 2-4 hours prior to bed. Gentle night yoga, diffusing essential oils, and playing soft music can be relaxing. Coding Level of Care Code New Pt Level 4 (07488) Diagnoses TARA treated with BiPAP G47.33 TARA (obstructive sleep apnea) G47.33 Time Spent (min) 25 Comment TARA / evaluation Sleep Questionnaire Difficulty falling asleep: Yes Difficulty staying asleep?: Yes Number of arousals: 2-3 dry mouth and bathroo Snoring: Yes (when not wearing cpap) Witnessed apneas: Yes Gasping arousals: Yes Nocturia: No GERD: Yes Vivid dreams: Yes Acting out dreams: No Abnormal behavior in sleep: No Abnormal movements in sleep: No Morning headaches: Yes Excessive daytime sleepiness: Yes Daytime naps: No Restless legs: Yes Hallucinations: No Sleep paralysis: No Drop attacks: No Sleep Study: Yes CPAP: Yes
[2025-04-03 13:59] VITALS: BP 122/80; PULSE 67; O2SAT 95; BMI 45.1
== END 2025-04-03 14:52 | disposition home or self-care (01) ==
LOC: HO.HSMS 13:44
PROVIDERS: PCP Internal Medicine; Visit Provider Physician Assistant Medical
DX: G47.33 Obstructive sleep apnea (adult) (pediatric) (principal)
CPT/HCPCS: 99204

== ENCOUNTER → 2025-04-03 13:44 | Outpatient (BNVA) | payer OTHER, SELFPAY | PROVIDERS: PCP Internal Medicine; Visit Provider Physician Assistant Medical | DX: G47.33 Obstructive sleep apnea (adult) (pediatric) (principal) | CPT/HCPCS: 99202 ==

== ENCOUNTER 2025-04-07 13:33 | Outpatient (AMB) | payer OTHER, SELFPAY ==
--- NOTE | 2025-04-07 13:48 | MHC.OFFVIS ---
Intake Visit Reasons: BPH Intake Note: New patient presents today for initial visit for BPH Urology Medication:None Blood Thinner:None Antibiotic Allergies:None PVR:189ml Allergies No Known Allergies Allergy (Verified 04/07/25 14:07) Medication List - Last Reconciled 04/07/25 by PRATIMA Jacob atenolol 50 mg PO DAILY diclofenac sodium 1% 4 grams topical BID fluticasone propionate 50 mcg/actuation 2 sprays intranasal DAILY omeprazole 20 mg PO DAILY simvastatin 10 mg PO BEDTIME tamsulosin 0.4 mg PO BEDTIME 30 days timolol maleate 0.5% 0.5 drps ophthalmic (eye) DAILY HPI Comments Details: Chandan is a very pleasant 39-year-old male patient of Dr. Jackson. He has a past medical history of palpitations, internal hemorrhoids, back pain, depression, GERD, hypertension, seasonal allergies, and obesity. He presents to the office today as a new patient for weak urinary stream. In discussion with the patient today reports having followed up with his PCP earlier this year in discussing ongoing issues he had been experiencing with weak urinary stream at which time a bladder ultrasound was ordered and performed and recommendations were made for urology referral for further assessment evaluation. Recent bladder ultrasound results were reviewed with the patient today. 11/11 the bladder is well distended and normal. The prostate gland is enlarged measuring 25 mL. Small postvoid residual. He reports feeling weak urinary stream has been present for months. He denies urinary urgency, urinary frequency, incontinence, nocturia, hematuria, dysuria, foul smelling urine, flank pain, fever, and or chills. In review of patient's chart it appears PSA 10/11 0.8. Unable to obtain urine for urinalysis as patient unable to void however PVR 189 mL. We did discussed potential causes of weak urinary stream, enlarged prostate as well as increase in PVR today. We discussed further treatment options and risks and benefits of these treatment options. Will obtain renal ultrasound for further assessment evaluation. All questions were answered. He otherwise offers no other issues or concerns at this time. [facility] Medical History Palpitations Internal hemorrhoids Torn ACL Back pain Depression GERD (gastroesophageal reflux disease) Hypertension Seasonal allergies Malabsorption due to intolerance, not elsewhere classified Obesity (BMI 30.0-34.9) Surgical History [place] teeth extracted S/P laparoscopic sleeve gastrectomy Family History Father Myocardial infarction Mother Brain tumor Diabetes CVD (cardiovascular disease) COPD (chronic obstructive pulmonary disease) Hypertension Sister No problems noted. Sister No problems noted. Daughter No problems noted. Maternal Grandmother Leukemia Social History Housing: Other Alcohol intake: current Alcohol intake frequency: a few times a week Patient Tobacco Use Status: Former Tobacco user Tobacco use type: Cigarette e-Cigarette/Vaping Use: Never Used Second Hand Smoke Exposure: Yes service: No Current occupational status: employed Cognitive needs: No Hearing needs: No Vision needs: Yes (Glasses) Review of Systems Const All systems reviewed & are unremarkable except as noted in HPI and below Physical Exam Const General: cooperative, healthy appearing, comfortable, no acute distress, well developed, alert and awake Nutritional Appearance: overweight Orientation/consciousness: patient oriented x3 Limitations: no limitations HEENT Head: Yes normal to inspection, Yes normocephalic and Yes atraumatic Ears: hearing grossly normal bilaterally Eyes General: appearance normal, both eyes and all related structures Neck Neck: Yes normal visual inspection and Yes trachea midline Chest Chest palpation & inspection: normal inspection of the chest Resp Effort & Inspection: normal respiratory effort and able to speak in complete sentences Cardio Rate: regular rate GI Inspection: Yes normal to inspection General: Yes no CVA tenderness Back/Spine/Pelvis Back: no CVA tenderness Skin General skin exam: no rashes or lesions noted Neuro General: patient oriented x3 Extrem General: Yes normal to inspection Psych Appearance: grossly normal and well kempt Mental Status: mental status grossly normal Speech and movement: Normal speech and movement present and Clear speech present Affect: normal affect Attitude: cooperative Thought process: Normal thought process present Thought content: Normal thought content present Insight: Fair insight present (Psych) Judgement: Fair judgement present (Psych) Results Reviewed Results Reviewed: Date of Service: 10/21/24 Procedure(s): US bladder FINDINGS: BLADDER: Well distended and normal. Bilateral ureteral jets are demonstrated. Prevoid bladder volume is 278 mL. Postvoid bladder volume is 15.6 mL. The prostate gland is enlarged measuring 24.5 mL. US/US bladder IMPRESSION: Small post void residual bladder volume measuring 15.6 mL. There are normal bilateral ureteral jets seen. Assessment & Plan Assessment & Plan (1) Enlarged prostate: Code(s): N40.0 - Benign prostatic hyperplasia without lower urinary tract symptoms Category: Medical Plan Unable to obtain urine for urinalysis today however PVR 189 mL. Recent bladder ultrasound results reviewed with the patient today; as noted above. We discussed incomplete bladder emptying and enlarged prostate. We discussed attempting to double void to assist with incomplete bladder emptying as well as attempting to sit when voiding to assist with bladder emptying. Start Flomax as discussed and prescribed. Recent PSA results reviewed with the patient today; as noted above. We discussed potential near future in office uroflow and or cystoscopy for further assessment evaluation. Will obtain renal ultrasound. Follow-up in 1-3 months with imaging to be completed prior and PVR at next office visit; or sooner with any issues, concerns, and or questions. Orders: Orders AMB Urinalysis Automated Today Z13.9 - Encounter for screening, unspecified AMB Post Void Residual by ultrasound Today N40.0 - Benign prostatic hyperplasia without lower urinary tract symptoms US renal BI Today N40.0 - Benign prostatic hyperplasia without lower urinary tract symptoms, R39.12 - Poor urinary stream Medications: New tamsulosin 0.4 mg PO BEDTIME 30 caps 3RF 30 days N40.1 - Benign prostatic hyperplasia with lower urinary tract symptoms, R35.1 - Nocturia Patient Instructions: The patient had an opportunity to ask questions regarding the treatment plan. All questions were answered. Physical exam, labs, and imaging were discussed and reviewed in detail. As well as risks, benefits, and discussion of treatment choices. No major barriers to understanding were identified. The patient expressed understanding and agreement with the above treatment plan. The patient was made aware they should contact our office by phone for worsening of their current condition, the appearance of new symptoms, or with any questions or concerns. Compliance is encouraged with any medications and follow up testing that is ordered. It is a privilege to be allowed the opportunity to participate in? your urological care.? Again, if you have any questions or concerns If you have any questions or concerns please do not hesitate to contact me. The office is [phone]. This note is constructed using voice recognition software. While every effort has been made to ensure accuracy billet bed operator errors may have been included. Yours sincerely, HARVEY Jacob-HOLLIS Coding Level of Care Code New Pt Level 4 (79256) Diagnoses Enlarged prostate N40.0
== END 2025-04-07 14:06 | disposition home or self-care (01) ==
LOC: HO.HUSH 13:34
PROVIDERS: PCP Internal Medicine; Visit Provider Nurse Practitioner Family
DX: N40.0 Benign prostatic hyperplasia without lower urinary tract symptoms (principal)
CPT/HCPCS: 99204

== ENCOUNTER → 2025-04-07 13:33 | Outpatient (BNVA) | payer OTHER, SELFPAY | PROVIDERS: PCP Internal Medicine; Visit Provider Nurse Practitioner Family | DX: N40.0 Benign prostatic hyperplasia without lower urinary tract symptoms (principal) | CPT/HCPCS: 99202 ==

== ENCOUNTER 2025-04-16 10:38 | Outpatient (AMB) | payer OTHER, SELFPAY ==
--- NOTE | 2025-04-16 10:45 | A.OFFPC_ITS ---
Vital Signs 04/16/25 10:46 04/16/25 11:11 Height 5 ft 5 in Weight 265 lb 6 oz BMI 44.2 BP 142/80 H 130/88 Blood Pressure Location Lt brachial Lt brachial Position Sitting Pulse 77 Pulse Source Pulse Oximeter Temp 97.6 F Temp Source Temporal Artery Scan Pulse Oximetry (%) 97 Oxygen Delivery Method Room Air Intake Visit Reasons: f/u TARA and HTN Program Support Specialist Required: No Accompanied by: Self / Same As Patient Allergies No Known Allergies Allergy (Verified 04/16/25 10:53) Medication List - Last Reconciled 04/16/25 by Katey Schneider PA-C atenolol 50 mg PO DAILY diclofenac sodium 1% 4 grams topical BID fluticasone propionate 50 mcg/actuation 2 sprays intranasal DAILY omeprazole 20 mg PO DAILY simvastatin 10 mg PO BEDTIME tamsulosin 0.4 mg PO BEDTIME 30 days timolol maleate 0.5% 0.5 drps ophthalmic (eye) DAILY Tobacco use date assessed: 04/16/25 Dental Screening Dental Screen Date: 04/16/25 Did you have a dental visit in the last 12 months?: No Did you have a dental problem in the last 6 months where you did not have access to dental care?: No Was dental information given to patient?: No HPI f/u TARA and HTN HPI Details 39-year-old male with past medical histo ry of obesity s/p laparoscopic sleeve gastrectomy, obstructive sleep apnea not currently on CPAP, hypertension, hypercholesterolemia, history of SVT last seen 12/2024 coming in for follow up. In review of the notes, patient was seen by Urology 03/2025 for enlarged prostate started on Flomax, plan to obtain renal ultrasound and follow up in 1-3 months. She was seen by Neurology 03/2025 for obstructive sleep apnea discussed sleep hygiene and reinforced BiPAP therapy. Seen by Cardiology 03/2025 recommended and weight loss follow up in 6 months. Presenting with management of obstructive sleep apnea, hypertension, and benign prostatic hyperplasia. The patient reports difficulty using the CPAP machine due to discomfort and waking up with a dry mouth and feeling like a blowfish. The patient has been advised to adjust the humidification and heat settings on the CPAP machine, but continues to experience issues. The patient reports fluctuating blood pressure readings, with recent measurements showing 130/88 mmHg. The patient takes blood pressure medication approximately one hour after waking up, which may not allow enough time for the medication to take effect before measuring blood pressure. The patient screened positive for depression, attributing it to stress from being a new father and caring for a sick mother. The patient has been started on tamsulosin, which has improved urinary symptoms. [facility] Medical History Palpitations Internal hemorrhoids Torn ACL Back pain Depression GERD (gastroesophageal reflux disease) Hypertension Seasonal allergies Malabsorption due to intolerance, not elsewhere classified Obesity (BMI 30.0-34.9) Surgical History [place] teeth extracted S/P laparoscopic sleeve gastrectomy Family History Father Myocardial infarction Mother Brain tumor Diabetes CVD (cardiovascular disease) COPD (chronic obstructive pulmonary disease) Hypertension Sister No problems noted. Sister No problems noted. Daughter No problems noted. Maternal Grandmother Leukemia Social History Housing: Other Alcohol intake: current Alcohol intake frequency: a few times a week Patient Tobacco Use Status: Former Tobacco user Tobacco use type: Cigarette e-Cigarette/Vaping Use: Never Used Second Hand Smoke Exposure: Yes service: No Current occupational status: employed Cognitive needs: No Hearing needs: No Vision needs: Yes (Glasses) Questionnaire PHQ-9 Over the last 2 weeks, how often have you been bothered by any of the following problems? 1. Little interest or pleasure in doing things: not at all 2. Feeling down, depressed, or hopeless: not at all 3. Trouble falling or staying asleep, or sleeping too much: nearly every day 4. Feeling tired or having little energy: nearly every day 5. Poor appetite or overeating: not at all 6. Feeling bad about yourself - or that you are a failure or have let yourself or your family down: not at all 7. Trouble concentrating on things, such as reading the newspaper or watching television: not at all 8. Moving or speaking so slowly that other people could have noticed. Or the opposite - being so fidgety or restless that you have been moving around a lot more than usual: not at all 9. Thoughts that you would be better off or of hurting yourself in some way: not at all Total score: 6 Depression Screening Interpretation: Positive Depression Screening Done: Yes 16452 - PHQ-9 Billing: Yes Source: Developed by Drs. Brendan Quintana, Amrita Ortiz, Michael Greene and colleagues, with an educational forrest from [employer]. Thrive Questionnaire Date Thrive assessed: 04/16/25 I am a: Patient What is your living situation today?: I have a steady place to live Within the past 12 months, did the food you bought not last and you didn't have the money to get more?: I choose not to answer this question Within the past 12 months, did you worry whether your food would run out before you got money to buy more?: I choose not to answer this question Do you have trouble paying for medicines?: No Do you have trouble getting transportation to medical appointments?: No Do you have trouble paying your heating and electricity bill?: No Do you have trouble taking care of your child, family member or friend?: No Do you have trouble with day-to-day activities such as bathing, preparing meals, shopping, managing finances, etc.?: No Are you currently unemployed and looking for a job?: No Are you interested in more education?: No Please select the resources that you would like help with: None Currently or been in a relationship where the following occur: No concerns reported THRIVE Score: 0 AUDIT C Alcohol Use Questionnaire (AUDIT-C) 1. How often do you have a drink containing alcohol?: 2-3 times a week Total Score: 3 NOE-7 AMB Questionnaire NOE-7 Date NOE - 7 assessed: 04/16/25 Feeling nervous, anxious, or on edge: 0 = Not at all Not being able to stop or control worryin = Not at all Worrying too much about different things: 1 = Several days Trouble relaxin = Several days Being so restless that it is hard to sit still: 0 = Not at all Becoming easily annoyed or irritable: 0 = Not at all Feeling afraid as if something awful might happen: 0 = Not at all Total NOE-7 score (0-4 normal; 5-9 mild; 10-14 moderate; 15-21 severe): 2 Source: Developed by Drs. Brendan Quintana, Amrita Ortiz, Michael rGeene and colleagues, with an educational forrest from [employer]. NOE-7 Assessment Billing NOE-7 Assessment Tool: NOE-7 Assessment 10189 Review of Systems Const Denies body aches, Denies chills, Denies fever(s), Denies headache(s) and Denies poor appetite Eyes Reports no additional complaints ENT Denies dizziness and Denies headache(s) Card Denies chest pain, Denies edema, Denies lightheadedness and Denies dyspnea Resp Denies dyspnea GI Denies abdominal pain, Denies nausea and Denies vomiting Reports no additional complaints Musc Reports no additional complaints and Denies abnormal gait Skin/Breast Reports system reviewed and no additional complaints, except as documented Neuro Denies abnormal gait, Denies dizziness and Denies headache(s) Psych Reports no additional complaints Physical exam (Primary Care) Vital Signs: Last Vital Signs Temp 97.6 F 04/16/25 10:46 Pulse 77 04/16/25 10:46 BP 130/88 04/16/25 11:11 Pulse Ox 97 04/16/25 10:46 Oxygen Delivery Method Room Air 04/16/25 10:46 BMI result Body Mass Index 44.2 Tobacco/Smoking Status: Tobacco use Status Tobacco use date assessed 04/16/25 04/16/25 10:51 Patient Tobacco Use Status Former Tobacco user 04/16/25 10:51 Tobacco use type Cigarette 04/16/25 10:51 e-Cigarette/Vaping Use Never Used 04/16/25 10:51 PHQ-9: PHQ-9 Score PHQ-9: Total score 6 04/16/25 11:08 Depression Screening Interpretation: Positive Thrive Assessment: Date of Thrive Assessment Date Thrive assessed 04/16/25 04/16/25 10:51 Currently or been in a relationship where the following occur: No concerns reported Const General: cooperative, healthy appearing, comfortable and no acute distress Orientation/consciousness: patient oriented x3 HENMT Head: Yes normocephalic Ears: hearing grossly normal bilaterally General nose exam: Normal external nose present Eyes General: appearance normal, both eyes and all related structures Conjunctivae: conjunctivae normal Neck Neck: Yes full ROM and Yes no lymphadenopathy Resp Effort & Inspection: normal respiratory effort Auscultation: clear to auscultation bilaterally, no crackles, no rales, no rhonchi and no wheezes Cardio Rate: regular rate Rhythm: regular rhythm Skin General skin exam: no rashes or lesions noted Neuro General: patient oriented x3 Gait exam (Neuro): Normal gait present Extrem General: Yes normal to inspection, Yes full ROM and No edema Psych Affect: normal affect Attitude: cooperative Insight: Good insight present (Psych) Judgement: Good judgement present (Psych) Coding Level of Care Code Est Pt Level 3 (16021) Diagnoses GERD (gastroesophageal reflux disease) K21.9 Morbid obesity with BMI of 40.0-44.9, adult E66.01; Z68.41 TARA (obstructive sleep apnea) G47.33 Primary hypertension I10 Hypertension type: primary hypertension Mixed hyperlipidemia E78.2 Hyperlipidemia type: mixed hyperlipidemia Enlarged prostate N40.0 Additional Codes NOE-7 Assessment Billing - NOE-7 Assessment Tool: NOE-7 Assessment 41968 ([id number]) PHQ-9 - 24707 - PHQ-9 Billing: Yes ([id number]) Assessment & Plan Assessment & Plan (1) GERD (gastroesophageal reflux disease): Code(s): K21.9 - Gastro-esophageal reflux disease without esophagitis Category: Medical Plan: Avoid trigger foods such as citrus, tomato products, soda, caffeine, spicy foods and other foods that may be irritating to your stomach. Avoid laying flat 3-4 hours after eating and elevate the head of the bed 30 degrees to prevent acid fr om moving into the esophagus. (2) Morbid obesity with BMI of 40.0-44.9, adult: Code(s): E66.01 - Morbid (severe) obesity due to excess calories; Z68.41 - Body mass index [BMI] 40.0-44.9, adult Category: Medical Plan: Healthy diet and regular exercise is encouraged. (3) TARA (obstructive sleep apnea): Comment: Cannot tolerate CPAP/ bipap will evaluate with ENT if dry mouth does not improve with humidification xylemelt Code(s): G47.33 - Obstructive sleep apnea (adult) (pediatric) Category: Medical Plan: Reinforced CPAP use and continue to follow with neurology. For dry mouth may use Biotene rinse/tablets. (4) Hypertension: Code(s): I10 - Essential (primary) hypertension Category: Medical Qualifiers: Hypertension type: primary hypertension Qualified Code(s): I10 - Essential (primary) hypertension Plan: Continue on current blood pressure medication. Avoid salt intake and encourage healthy diet and regular exercise. Blood pressure at goal today advised to bring home logs to next visit. Reveiwed goal less that 140/90 and advised to reach out to the office if his BP exceeds this goal. (5) Hyperlipidemia: Code(s): E78.5 - Hyperlipidemia, unspecified Category: Medical Qualifiers: Hyperlipidemia type: mixed hyperlipidemia Qualified Code(s): E78.2 - Mixed hyperlipidemia Plan: Avoid foods that are high in cholesterol such as red meat, fried foods, eggs and baked goods. Triglyceride goal of less than 150 and LDL goal of less than 100. Reminded patient about blood work. (6) Enlarged prostate: Code(s): N40.0 - Benign prostatic hyperplasia without lower urinary tract symptoms Category: Medical Plan: Continue to follow with urology and recently started on Tamsulosin. Has renal US and Urology appt June. Plan The patient is advised to continue using the CPAP machine for obstructive sleep apnea, with adjustments to humidification and heat settings as recommended by the sleep specialist. A repeat sleep study is planned to update previous results and assess current needs. For hypertension, the patient is instructed to monitor blood pressure at home and ensure medication is taken with sufficient time to take effect before measurement. Dietary modifications and consistent use of prescribed medications are emphasized. The patient is encouraged to address stress and depression through lifestyle adjustments and support from family, though no immediate medication or counseling is sought. Continued use of tamsulosin for benign prostatic hyperplasia is recommended, with follow-up appointments scheduled with urology and neurology in June. This note was constructed using voice recognition software. While every effort has been made to ensure accuracy and rest room maid, still areas may have been included sometimes these areas may affect the content or meeting of the given symptoms. Total time spent caring for the patient today was 20 minutes. This includes time spent before the visit reviewing the chart, time spent during the visit, and time spent after the visit and documentation. Patient was informed and verbally consented to the use of an ambient scribe for clinic note documentation during this visit.
[2025-04-16 10:46] VITALS: BP 142/80; PULSE 77; TEMP 36.4; O2SAT 97; BMI 44.2
[2025-04-16 11:11] VITALS: BP 130/88
== END 2025-04-16 11:19 | disposition home or self-care (01) ==
LOC: HO.HMCH 10:39
PROVIDERS: PCP Internal Medicine
DX: K21.9 Gastro-esophageal reflux disease without esophagitis (principal); E66.01 Morbid (severe) obesity due to excess calories; Z68.41 Body mass index [BMI] 40.0-44.9, adult; G47.33 Obstructive sleep apnea (adult) (pediatric); I10 Essential (primary) hypertension; E78.2 Mixed hyperlipidemia; N40.0 Benign prostatic hyperplasia without lower urinary tract symptoms

== ENCOUNTER → 2025-04-16 10:38 | Outpatient (BNVA) | payer OTHER, SELFPAY | PROVIDERS: PCP Internal Medicine | DX: G47.33 Obstructive sleep apnea (adult) (pediatric) (principal); I10 Essential (primary) hypertension; E78.00 Pure hypercholesterolemia, unspecified; K21.9 Gastro-esophageal reflux disease without esophagitis; E66.01 Morbid (severe) obesity due to excess calories; E78.2 Mixed hyperlipidemia; N40.0 Benign prostatic hyperplasia without lower urinary tract symptoms; Z68.41 Body mass index [BMI] 40.0-44.9, adult; Z98.84 Bariatric surgery status | CPT/HCPCS: 96127; 99212 ==

== ENCOUNTER 2025-04-24 11:02 | Outpatient (REF) | payer OTHER, SELFPAY ==
[2025-04-24 12:03] LABS: Appearance Urine Clear; Glucose Urine UA Negative (Negative); PH 8.5 (5.0-9.0); Specific Gravity - Urine 1.020 (1.005-1.025)
[2025-04-24 12:27] LABS: Cholesterol 193 mg/dL (<200); HDL Cholesterol 56 mg/dL (>40); Triglycerides 151 mg/dL (<150)
== END 2025-04-24 11:03 | disposition home or self-care (01) ==
LOC: HO.LAB 11:02
PROVIDERS: PCP Internal Medicine
DX: E78.00 Pure hypercholesterolemia, unspecified (principal); R35.89 Other polyuria
CPT/HCPCS: 36415; 80061; 81003